=== PATIENT | male | born 1960 | race Two or more races ===

== ENCOUNTER 2022-05-05 00:32 | Inpatient (IN) | payer BC, OTHER ==
[2022-05-05] VITALS (19 sets, daily range): BP systolic 83–185; BP diastolic 53–101
[~2022-05-05] VITALS: Ht 172.7 cm; Wt 85.6 kg
[2022-05-05] MEDS ORDERED: PANTOPRAZOLE 40 MG/10 ML VIAL INJ IV ONE (01:00)
[2022-05-05 01:41] LABS: Basophils # (auto) 0 10 ^3/uL (0-0.2); Basophils % (auto) 0.8 % (0.0-2.0); Eosinophils # (auto) 0.1 10 ^3/uL (0-0.8); Lymphocytes # (auto) 0.7 10 ^3/uL (0.4-5.4); Mean Corpuscular Hemoglobin 29.4 pg (28.0-32.0); Mean Corpuscular Hgb Conc. 33.4 g/dL (32.0-36.0); Monocytes # (auto) 0.6 10 ^3/uL (0-1.3); Monocytes % (auto) 10.6 % (0.0-12.0); Neutrophils # (auto) 4.5 10 ^3/uL (1.6-8.6); Neutrophils % (auto) 75.6 % (37.0-80.0); Nucleated Red Blood Cells % 0.1 %; Red Blood Cells 3.75 10^6/uL (4.5-5.90); Red Cell Distribution Width 15.4 % (11.8-14.3)
[2022-05-05 01:57] LABS: Albumin 2.6 g/dL (3.4-5.0); Calcium 8.2 mg/dL (8.5-10.1); Potassium 4.7 mmol/L (3.5-5.1)
[2022-05-05 02:06] LABS: BUN/Creatinine Ratio 25.3; Bilirubin, Total 1.3 mg/dL (0.2-1.0); Total Protein 6.3 g/dL (6.4-8.2)
[2022-05-05] MEDS ORDERED: metroNIDAZOLE 500MG/100ML 100 ML IV ONE (07:30)
[2022-05-05] MEDS ORDERED: SODIUM CHLORIDE 0.9% 1,000 ML IV ONE (07:30)
[2022-05-05] MEDS ORDERED: cefTRIAXone 1GM/50ML D5W 50 ML IV ONE ×2 (07:30→17:45)
[2022-05-05] MEDS ORDERED: AZITHROMYCIN 500MG/ 250ML 250 ML IV ONE (07:30)
[2022-05-05] MEDS ORDERED: ONDANSETRON HCL 4 MG/2 ML VIAL IV ONE (09:30)
[2022-05-05] MEDS ORDERED: MORPHINE SULFATE INJ 2 MG/ml SYRG IV ONE (09:30)
[2022-05-05] MEDS ORDERED: ACETAMINOPHEN 325 MG TAB PO PRN (10:15)
[2022-05-05] MEDS ORDERED: LORazepam 0.5 MG TAB PO PRN (10:15)
[2022-05-05] MEDS ORDERED: PANTOPRAZOLE 40mg/50ML NS AE 50 ML IV ONE (10:15)
[2022-05-05] MEDS ORDERED: DEXTROSE (50%) 50ML SYRG IV PRN (10:15)
[2022-05-05] MEDS ORDERED: DOCUSATE SOD 100 MG CAP PO PRN (10:15)
[2022-05-05] MEDS ORDERED: HYDROcodone-ACET 5/325MG TAB PO PRN (10:15)
[2022-05-05] MEDS ORDERED: OCTREOTIDE ACETATE 500 MCG in SODIUM CHL 0.9% 99 ML IV SCH (11:15)
[2022-05-05] MEDS ORDERED: OCTREOTIDE ACETATE 100 MCG in SODIUM CHL 0.9% 50 ML IV ONE (11:15)
[2022-05-05 11:30] LABS: Basophils # (auto) 0 10 ^3/uL (0-0.2); Basophils % (auto) 0.5 % (0.0-2.0); Eosinophils # (auto) 0 10 ^3/uL (0-0.8); Eosinophils % (auto) 0.6 % (0.0-7.0); Hematocrit 27.8 % (41.0-53.0); Hemoglobin 9.5 g/dL (13.5-17.5); Lymphocytes # (auto) 1.2 10 ^3/uL (0.4-5.4); Lymphocytes % (auto) 16.5 % (10.0-50.0); Mean Corpuscular Hemoglobin 30.4 pg (28.0-32.0); Mean Corpuscular Hgb Conc. 34.2 g/dL (32.0-36.0); Mean Corpuscular Volume 88.8 fL (80.0-100.0); Monocytes % (auto) 14.5 % (0.0-12.0); Neutrophils # (auto) 4.9 10 ^3/uL (1.6-8.6); Neutrophils % (auto) 67.9 % (37.0-80.0); Nucleated Red Blood Cells % 0.1 %; Red Blood Cells 3.13 10^6/uL (4.5-5.90); Red Cell Distribution Width 15.7 % (11.8-14.3); White Blood Cell 7.2 10^3/uL (4.4-10.8)
[2022-05-05] MEDS: SODIUM CHLORIDE 0.9% 1,000 ML IV SCH (12:34)
[2022-05-05] MEDS: InsuLIN REG 1unit/0.01ml Soln (100units/ml) SC SCH ×3 (12:39→21:43)
[2022-05-05] MEDS: ACCU-CHEK COMFORT CURVE STRIP VI SCH ×3 (12:40→21:40)
[2022-05-05] MEDS ORDERED: MEPERIDINE HCL (25 MG/ML) 1ML VIAL ONE (14:24)
[2022-05-05] MEDS ORDERED: MIDAZOLAM HCL 2MG/2ML 2ml VIAL (1mg/ml) ONE ×4 (14:24→17:25)
[2022-05-05] MEDS ORDERED: fentaNYL CITRATE 100 MCG/2 ML VL ONE ×2 (14:24→16:46)
[2022-05-05] MEDS ORDERED: SUCCINYLCHOLINE CHLORIDE 20 MG/ML 10ML VIAL IV ONE (14:31)
[2022-05-05] MEDS ORDERED: DexAMETHasone SOD PHOS 10MG/1ML VIAL INJ ONE ×2 (16:03→16:57)
[2022-05-05] MEDS ORDERED: HYDROmorphone HCL 2 MG/ML VL/or syr ONE (16:45)
[2022-05-05] MEDS ORDERED: ROCURONIUM 10MG/ML 10ML VIAL IV ONE ×2 (16:46→19:17)
[2022-05-05] MEDS ORDERED: LABETALOL HCL 5 MG/ML 4ML SYRINGE IV PRN (17:45)
[2022-05-05] MEDS ORDERED: MORPHINE SULFATE 4 MG/ML SYR/VIAL IV PRN (17:45)
[2022-05-05] MEDS ORDERED: ePHEDrine SULFATE 50 MG/ML AMP IV PRN (17:45)
[2022-05-05] MEDS ORDERED: ONDANSETRON HCL 4 MG/2 ML VIAL IV PRN (17:45)
[2022-05-05] MEDS ORDERED: HYDROmorphone HCL 2 MG/ML VL/or syr IV PRN (17:45)
[2022-05-05] MEDS ORDERED: MIDAZOLAM HCL 2MG/2ML 2ml VIAL (1mg/ml) IV PRN (17:45)
[2022-05-05] MEDS: MIDAZOLAM DRIP 50 mg/50mL 50 ML IV SCH ×2 (18:00→23:32)
[2022-05-05] MEDS: PANTOPRAZOLE 40mg/50ML NS AE 50 ML IV SCH ×2 (18:08→23:33)
[2022-05-05] MEDS: OCTREOTIDE ACETATE 500 MCG in SODIUM CHL 0.9% 99 ML IV SCH (18:10)
[2022-05-05 18:12] LABS: INR 1.43 (0.9-1.15); Partial Thromboplastin Time 33.3 sec (24.6-33.4)
[2022-05-05] MEDS ORDERED: SODIUM BICARBONATE 8.4 % INJ 50ML VIAL IV ONE ×2 (18:45→19:00)
[2022-05-05 18:53] LABS: Alcohol, Urine < 3.0 mg/dL (0-10); Amphetamine Screen, Urine NEGATIVE (NEGATIVE); Barbiturate Scree,Urine NEGATIVE (NEGATIVE); Benzodiazephine Screen, Urine POSITIVE (NEGATIVE); Cannabinoid Screen, Urine NEGATIVE (NEGATIVE); Cocaine Screen, Urine NEGATIVE (NEGATIVE)
[2022-05-05 19:01] LABS: Opiate Scree,Urine NEGATIVE (NEGATIVE); Phencyclidine Screen, Urine NEGATIVE (NEGATIVE)
[2022-05-05] MEDS: fentaNYL Drip 2500mCg/250mlNS 250 ML IV SCH (21:10)
[2022-05-05] MEDS: metroNIDAZOLE 500MG/100ML 100 ML IV SCH (21:39)
[2022-05-05] MEDS: PHENYLEPHRINE IV 250 ML IV SCH (23:31)
[2022-05-05 23:51] LABS: Hematocrit 27.3 % (41.0-53.0); Hemoglobin 9.2 g/dL (13.5-17.5)
[2022-05-06] VITALS (107 sets, daily range): BP systolic 78–123; BP diastolic 40–71
[2022-05-06] MEDS: ACCU-CHEK COMFORT CURVE STRIP VI SCH ×6 (00:54→20:10)
[2022-05-06] MEDS: InsuLIN REG 1unit/0.01ml Soln (100units/ml) SC SCH ×6 (00:55→20:10)
[2022-05-06] MEDS: OCTREOTIDE ACETATE 500 MCG in SODIUM CHL 0.9% 99 ML IV SCH ×3 (03:19→21:00)
[2022-05-06] MEDS: PHENYLEPHRINE IV 250 ML IV SCH ×3 (03:20→10:27)
[2022-05-06 04:02] LABS: Hematocrit 30.3 % (41.0-53.0); Hemoglobin 9.8 g/dL (13.5-17.5); Mean Corpuscular Hgb Conc. 32.3 g/dL (32.0-36.0); Red Blood Cells 3.26 10^6/uL (4.5-5.90); Red Cell Distribution Width 16.6 % (11.8-14.3); White Blood Cell 13.5 10^3/uL (4.4-10.8)
[2022-05-06 04:10] LABS: Albumin 2.4 g/dL (3.4-5.0); Calcium 6.4 mg/dL (8.5-10.1); Potassium 4.5 mmol/L (3.5-5.1)
[2022-05-06 04:12] LABS: Basophils % (manual) 0 (0.0-2.0); Blast Cells 0; Eosinophils % (manual) 0 (0-7); Metamyelocytes % 0; Myelocytes % 0; Promyelocytes % 0; Reactive Lymphocytes 0
[2022-05-06 04:14] LABS: BUN/Creatinine Ratio 34.1; Bilirubin, Total 0.8 mg/dL (0.2-1.0); Total Protein 4.9 g/dL (6.4-8.2)
[2022-05-06 04:19] LABS: INR 1.31 (0.9-1.15); Partial Thromboplastin Time 33.8 sec (24.6-33.4)
[2022-05-06] MEDS: PANTOPRAZOLE 40mg/50ML NS AE 50 ML IV SCH ×5 (05:17→21:00)
[2022-05-06 05:21] LABS: Band Neutrophils % (manual) 6; Lymphocytes % (manual) 28 (10.0-50.0); Monocytes % (manual) 15 (0-12)
[2022-05-06] MEDS: metroNIDAZOLE 500MG/100ML 100 ML IV SCH ×3 (05:22→20:00)
[2022-05-06] MEDS: SODIUM CHLORIDE 0.9% 1,000 ML IV SCH ×2 (05:38→19:35)
[2022-05-06] MEDS: MIDAZOLAM DRIP 50 mg/50mL 50 ML IV SCH (06:26)
[2022-05-06] MEDS: cefTRIAXone 1GM/50ML D5W 50 ML IV SCH (09:00)
[2022-05-06] MEDS ORDERED: PHENYLEPHRINE IV 250 ML IV ONE (12:07)
[2022-05-06] MEDS: PHENYLEPHRINE INJ 80 MG in SODIUM CHL 0.9% 242 ML IV SCH (15:17)
[2022-05-06] MEDS: fentaNYL Drip 2500mCg/250mlNS 250 ML IV SCH (15:27)
[2022-05-06 19:04] LABS: Urine Bacteria NONE SEEN /hpf (None Seen); Urine Blood 1+ /uL (Negative); Urine Specific Gravity 1.031 (1.001-1.035); Urine WBC 3 /hpf (0 - 3)
[2022-05-07] VITALS (103 sets, daily range): BP systolic 90–119; BP diastolic 55–73
[2022-05-07 02:38] LABS: Hematocrit 28.4 % (41.0-53.0); Hemoglobin 9.4 g/dL (13.5-17.5); Mean Corpuscular Hemoglobin 29.5 pg (28.0-32.0); Mean Corpuscular Hgb Conc. 33.2 g/dL (32.0-36.0); Mean Corpuscular Volume 88.9 fL (80.0-100.0); Red Blood Cells 3.19 10^6/uL (4.5-5.90); Red Cell Distribution Width 16.1 % (11.8-14.3); White Blood Cell 13.4 10^3/uL (4.4-10.8)
[2022-05-07 02:56] LABS: Albumin 2.3 g/dL (3.4-5.0); BUN/Creatinine Ratio 31.7; Calcium 6.7 mg/dL (8.5-10.1); Potassium 4.4 mmol/L (3.5-5.1)
[2022-05-07 02:59] LABS: Bilirubin, Total 0.6 mg/dL (0.2-1.0); Total Protein 5.5 g/dL (6.4-8.2)
[2022-05-07 03:04] LABS: Basophils % (manual) 0 (0.0-2.0); Blast Cells 0; Eosinophils % (manual) 0 (0-7); Metamyelocytes % 0; Promyelocytes % 0; Reactive Lymphocytes 0
[2022-05-07] MEDS: PANTOPRAZOLE 40mg/50ML NS AE 50 ML IV SCH ×5 (03:10→23:59)
[2022-05-07] MEDS: metroNIDAZOLE 500MG/100ML 100 ML IV SCH ×3 (04:00→20:22)
[2022-05-07] MEDS: InsuLIN REG 1unit/0.01ml Soln (100units/ml) SC SCH ×6 (04:00→20:30)
[2022-05-07] MEDS: ACCU-CHEK COMFORT CURVE STRIP VI SCH ×6 (04:00→20:25)
[2022-05-07 04:27] LABS: Band Neutrophils % (manual) 7; Lymphocytes % (manual) 17 (10.0-50.0); Monocytes % (manual) 18 (0-12); Myelocytes % 1
[2022-05-07] MEDS: cefTRIAXone 1GM/50ML D5W 50 ML IV SCH (09:08)
[2022-05-07] MEDS: PHENYLEPHRINE INJ 80 MG in SODIUM CHL 0.9% 242 ML IV SCH ×2 (09:12→18:42)
[2022-05-07] MEDS: OCTREOTIDE ACETATE 500 MCG in SODIUM CHL 0.9% 99 ML IV SCH ×2 (09:13→18:48)
[2022-05-07] MEDS: SODIUM CHLORIDE 0.9% 1,000 ML IV SCH ×2 (14:35→20:24)
[2022-05-07] MEDS: MIDAZOLAM DRIP 50 mg/50mL 50 ML IV SCH (17:06)
[2022-05-07] MEDS: fentaNYL Drip 2500mCg/250mlNS 250 ML IV SCH (20:30)
[2022-05-08] VITALS (106 sets, daily range): BP systolic 102–128; BP diastolic 45–78
[2022-05-08] MEDS: InsuLIN REG 1unit/0.01ml Soln (100units/ml) SC SCH ×6 (00:02→23:39)
[2022-05-08] MEDS: ACCU-CHEK COMFORT CURVE STRIP VI SCH ×6 (04:00→23:41)
[2022-05-08 04:08] LABS: Hematocrit 28.5 % (41.0-53.0); Hemoglobin 9.6 g/dL (13.5-17.5); Mean Corpuscular Hemoglobin 30.8 pg (28.0-32.0); Mean Corpuscular Hgb Conc. 33.7 g/dL (32.0-36.0); Mean Corpuscular Volume 91.4 fL (80.0-100.0); Red Blood Cells 3.12 10^6/uL (4.5-5.90); Red Cell Distribution Width 16.1 % (11.8-14.3)
[2022-05-08 04:10] LABS: Basophils % (manual) 0 (0.0-2.0); Blast Cells 0; Eosinophils % (manual) 0 (0-7); Myelocytes % 0; Promyelocytes % 0; Reactive Lymphocytes 0
[2022-05-08 04:16] LABS: BUN/Creatinine Ratio 25.6; Calcium 7.1 mg/dL (8.5-10.1); Potassium 3.9 mmol/L (3.5-5.1)
[2022-05-08] MEDS: metroNIDAZOLE 500MG/100ML 100 ML IV SCH ×3 (04:17→20:29)
[2022-05-08] MEDS: PANTOPRAZOLE 40mg/50ML NS AE 50 ML IV SCH ×5 (05:05→23:42)
[2022-05-08 05:16] LABS: Band Neutrophils % (manual) 2; Lymphocytes % (manual) 11 (10.0-50.0); Metamyelocytes % 2; Monocytes % (manual) 14 (0-12)
[2022-05-08] MEDS: OCTREOTIDE ACETATE 500 MCG in SODIUM CHL 0.9% 99 ML IV SCH ×3 (05:21→20:30)
[2022-05-08] MEDS: MIDAZOLAM DRIP 50 mg/50mL 50 ML IV SCH ×3 (05:22→16:29)
[2022-05-08] MEDS: cefTRIAXone 1GM/50ML D5W 50 ML IV SCH (09:39)
[2022-05-08] MEDS ORDERED: D5W 5% 1,000 ML IV SCH (11:45)
[2022-05-08] MEDS: D5W 5% 1,000 ML IV SCH (12:30)
[2022-05-08 12:37] LABS: Magnesium 2.4 mg/dL (1.6-2.6); Phosphorus 1.9 mg/dL (2.5-4.90)
[2022-05-08] MEDS ORDERED: DEXTROSE (50%) 50ML SYRG IV SCH (12:45)
[2022-05-08] MEDS ORDERED: TPN PER PHARMACY IV SCH (12:45)
[2022-05-08] MEDS ORDERED: POTASSIUM PHOSPHATE 26.4 MEQ in SODIUM CHL 0.9% 100 ML IV ONE (13:45)
[2022-05-08] MEDS: fentaNYL Drip 2500mCg/250mlNS 250 ML IV SCH (16:28)
[2022-05-08] MEDS ORDERED: TPN PER PHARMACY IV NR ×8 (20:00)
[2022-05-09] VITALS (106 sets, daily range): BP systolic 93–201; BP diastolic 49–91
[2022-05-09] MEDS: metroNIDAZOLE 500MG/100ML 100 ML IV SCH ×3 (03:51→20:32)
[2022-05-09 05:02] LABS: Hematocrit 24.8 % (41.0-53.0); Mean Corpuscular Hemoglobin 30.7 pg (28.0-32.0); Mean Corpuscular Hgb Conc. 32.5 g/dL (32.0-36.0); Mean Corpuscular Volume 94.6 fL (80.0-100.0); Red Blood Cells 2.62 10^6/uL (4.5-5.90); Red Cell Distribution Width 16.4 % (11.8-14.3); White Blood Cell 6.7 10^3/uL (4.4-10.8)
[2022-05-09 05:04] LABS: Basophils # (auto) 0 10 ^3/uL (0-0.2); Basophils % (auto) 0.6 % (0.0-2.0); Eosinophils # (auto) 0.1 10 ^3/uL (0-0.8); Eosinophils % (auto) 1.1 % (0.0-7.0); Lymphocytes # (auto) 0.8 10 ^3/uL (0.4-5.4); Lymphocytes % (auto) 11.8 % (10.0-50.0); Monocytes # (auto) 1.4 10 ^3/uL (0-1.3); Neutrophils # (auto) 4.4 10 ^3/uL (1.6-8.6); Neutrophils % (auto) 65.2 % (37.0-80.0)
[2022-05-09 05:05] LABS: Basophils % (manual) 0 (0.0-2.0); Blast Cells 0; Metamyelocytes % 0; Myelocytes % 0; Promyelocytes % 0; Reactive Lymphocytes 0
[2022-05-09 05:08] LABS: INR 1.32 (0.9-1.15); Partial Thromboplastin Time 38.1 sec (24.6-33.4)
[2022-05-09] MEDS: PANTOPRAZOLE 40mg/50ML NS AE 50 ML IV SCH ×4 (05:13→21:11)
[2022-05-09 06:11] LABS: Potassium 3.6 mmol/L (3.5-5.1)
[2022-05-09 06:22] LABS: BUN/Creatinine Ratio 29.7; Bilirubin, Total 0.6 mg/dL (0.2-1.0); Magnesium 2.5 mg/dL (1.6-2.6); Phosphorus 1.3 mg/dL (2.5-4.90)
[2022-05-09] MEDS: InsuLIN REG 1unit/0.01ml Soln (100units/ml) SC SCH ×3 (06:24→17:42)
[2022-05-09] MEDS: ACCU-CHEK COMFORT CURVE STRIP VI SCH ×3 (06:24→17:42)
[2022-05-09 07:18] LABS: Band Neutrophils % (manual) 11; Eosinophils % (manual) 1 (0-7); Lymphocytes % (manual) 13 (10.0-50.0); Monocytes % (manual) 21 (0-12)
[2022-05-09] MEDS: D5W 5% 1,000 ML IV SCH (08:30)
[2022-05-09] MEDS: cefTRIAXone 1GM/50ML D5W 50 ML IV SCH (09:33)
[2022-05-09] MEDS: PHENYLEPHRINE INJ 80 MG in SODIUM CHL 0.9% 242 ML IV SCH (10:15)
[2022-05-09] MEDS: OCTREOTIDE ACETATE 500 MCG in SODIUM CHL 0.9% 99 ML IV SCH ×2 (10:37→18:35)
[2022-05-09] MEDS ORDERED: POTASSIUM PHOSPHATE 22 MEQ in SODIUM CHL 0.9% 100 ML IV ONE (11:00)
[2022-05-09] MEDS ORDERED: POTASSIUM PHOSPHATE 44 MEQ in D5W 5% 250 ML IV ONE (12:00)
[2022-05-09] MEDS ORDERED: POTASSIUM PHOSP 22MEQ(15MMOLE) in NS 100 ML IV ONE (12:00)
[2022-05-09] MEDS: MIDAZOLAM DRIP 50 mg/50mL 50 ML IV SCH (17:42)
[2022-05-09] MEDS: fentaNYL Drip 2500mCg/250mlNS 250 ML IV SCH (17:43)
[2022-05-09] MEDS ORDERED: TPN PER PHARMACY IV NR ×11 (20:00)
[2022-05-10] VITALS (101 sets, daily range): BP systolic 88–176; BP diastolic 44–98
[2022-05-10] MEDS: ACCU-CHEK COMFORT CURVE STRIP VI SCH ×5 (00:34→23:40)
[2022-05-10] MEDS: InsuLIN REG 1unit/0.01ml Soln (100units/ml) SC SCH ×5 (00:35→23:50)
[2022-05-10] MEDS: PANTOPRAZOLE 40mg/50ML NS AE 50 ML IV SCH ×4 (02:58→18:31)
[2022-05-10] MEDS: D5W 5% 1,000 ML IV SCH (03:54)
[2022-05-10] MEDS: metroNIDAZOLE 500MG/100ML 100 ML IV SCH ×2 (04:01→13:10)
[2022-05-10] MEDS: OCTREOTIDE ACETATE 500 MCG in SODIUM CHL 0.9% 99 ML IV SCH ×3 (04:01→23:49)
[2022-05-10 06:01] LABS: Hematocrit 22.2 % (41.0-53.0); Hemoglobin 7.5 g/dL (13.5-17.5); White Blood Cell 5.3 10^3/uL (4.4-10.8)
[2022-05-10 06:05] LABS: Mean Corpuscular Hemoglobin 30.7 pg (28.0-32.0); Mean Corpuscular Hgb Conc. 33.9 g/dL (32.0-36.0); Mean Corpuscular Volume 90.6 fL (80.0-100.0); Red Blood Cells 2.45 10^6/uL (4.5-5.90); Red Cell Distribution Width 15.8 % (11.8-14.3)
[2022-05-10 06:09] LABS: Basophils % (manual) 0 (0.0-2.0); Blast Cells 0; Metamyelocytes % 0; Myelocytes % 0; Promyelocytes % 0; Reactive Lymphocytes 0
[2022-05-10 06:19] LABS: Albumin 1.9 g/dL (3.4-5.0); Calcium 6.6 mg/dL (8.5-10.1); Magnesium 2.4 mg/dL (1.6-2.6); Potassium 3.8 mmol/L (3.5-5.1)
[2022-05-10 06:22] LABS: Bilirubin, Total 0.5 mg/dL (0.2-1.0); Phosphorus 1.8 mg/dL (2.5-4.90); Total Protein 4.4 g/dL (6.4-8.2)
[2022-05-10] MEDS ORDERED: POTASSIUM PHOSPHATE 44 MEQ in D5W 5% 250 ML IV ONE (07:15)
[2022-05-10] MEDS ORDERED: D5W 5% 1,000 ML IV SCH (07:15)
[2022-05-10 07:54] LABS: Band Neutrophils % (manual) 3; Eosinophils % (manual) 3 (0-7); Lymphocytes % (manual) 13 (10.0-50.0); Monocytes % (manual) 18 (0-12)
[2022-05-10] MEDS: cefTRIAXone 1GM/50ML D5W 50 ML IV SCH (08:23)
[2022-05-10] MEDS: MIDAZOLAM DRIP 50 mg/50mL 50 ML IV SCH ×3 (08:24→23:49)
[2022-05-10] MEDS ORDERED: SODIUM PHOSP 40 MEQ in D5W 5% 250 ML IV ONE (10:00)
[2022-05-10] MEDS ORDERED: PANTOPRAZOLE 40 MG/10 ML VIAL INJ IV SCH ×2 (10:00→22:00)
[2022-05-10] MEDS: PHENYLEPHRINE INJ 80 MG in SODIUM CHL 0.9% 242 ML IV SCH ×2 (10:15→18:15)
[2022-05-10] MEDS: fentaNYL Drip 2500mCg/250mlNS 250 ML IV SCH (13:09)
[2022-05-10] MEDS ORDERED: PHENYLEPHRINE IV 250 ML IV ONE (15:21)
[2022-05-10] MEDS: PROPOFOL 100 ML IV SCH (15:45)
[2022-05-10] MEDS ORDERED: TPN PER PHARMACY IV NR ×22 (20:00)
[2022-05-10] MEDS: PANTOPRAZOLE 40 MG/10 ML VIAL INJ IV SCH (22:30)
[2022-05-11] VITALS (106 sets, daily range): BP systolic 84–134; BP diastolic 49–76
[2022-05-11] MEDS: fentaNYL Drip 2500mCg/250mlNS 250 ML IV SCH ×2 (03:20→13:49)
[2022-05-11] MEDS: MIDAZOLAM DRIP 50 mg/50mL 50 ML IV SCH ×5 (03:59→20:12)
[2022-05-11 04:12] LABS: INR 1.4 (0.9-1.15); Partial Thromboplastin Time 43.9 sec (24.6-33.4)
[2022-05-11 04:15] LABS: Basophils # (auto) 0 10 ^3/uL (0-0.2); Basophils % (auto) 0.4 % (0.0-2.0); Eosinophils # (auto) 0.2 10 ^3/uL (0-0.8); Eosinophils % (auto) 3.5 % (0.0-7.0); Hematocrit 26.7 % (41.0-53.0); Lymphocytes # (auto) 1.2 10 ^3/uL (0.4-5.4); Lymphocytes % (auto) 17.5 % (10.0-50.0); Mean Corpuscular Hemoglobin 30.9 pg (28.0-32.0); Mean Corpuscular Hgb Conc. 33.6 g/dL (32.0-36.0); Mean Corpuscular Volume 92.2 fL (80.0-100.0); Monocytes # (auto) 1.2 10 ^3/uL (0-1.3); Monocytes % (auto) 17.8 % (0.0-12.0); Neutrophils # (auto) 4.1 10 ^3/uL (1.6-8.6); Neutrophils % (auto) 60.8 % (37.0-80.0); Nucleated Red Blood Cells % 0.3 %; Red Blood Cells 2.89 10^6/uL (4.5-5.90); Red Cell Distribution Width 16.3 % (11.8-14.3); White Blood Cell 6.8 10^3/uL (4.4-10.8)
[2022-05-11 04:18] LABS: Potassium 3.9 mmol/L (3.5-5.1)
[2022-05-11 04:29] LABS: Albumin 1.9 g/dL (3.4-5.0); BUN/Creatinine Ratio 31.7; Bilirubin, Total 0.6 mg/dL (0.2-1.0); Calcium 6.8 mg/dL (8.5-10.1); Magnesium 2.1 mg/dL (1.6-2.6); Phosphorus 2.6 mg/dL (2.5-4.90); Total Protein 4.9 g/dL (6.4-8.2)
[2022-05-11] MEDS: InsuLIN REG 1unit/0.01ml Soln (100units/ml) SC SCH ×3 (06:28→17:50)
[2022-05-11] MEDS: ACCU-CHEK COMFORT CURVE STRIP VI SCH ×3 (06:28→17:49)
[2022-05-11] MEDS: cefTRIAXone 1GM/50ML D5W 50 ML IV SCH (08:15)
[2022-05-11] MEDS: PANTOPRAZOLE 40 MG/10 ML VIAL INJ IV SCH ×2 (09:35→21:47)
[2022-05-11] MEDS ORDERED: BUMETANIDE 2.5mg/10ml (0.25 mg/ml) INJ IV ONE (10:00)
[2022-05-11] MEDS: ALBUTEROL SULF 2.5 MG/0.5ML(0.5%) NEB SOLN NEB PRN ×2 (11:25→18:33)
[2022-05-11] MEDS: IPRATROPIUM BROM 0.5 MG/2.5ML INH SOL NEB PRN ×2 (11:26→18:33)
[2022-05-11] MEDS: DOXYCYCLINE 100MG/250ML 250 ML IV SCH ×2 (11:31→21:48)
[2022-05-11] MEDS ORDERED: PIPERACILLIN-TAZOB 3.375GM 100 ML IV SCH (12:00)
[2022-05-11] MEDS: OCTREOTIDE ACETATE 500 MCG in SODIUM CHL 0.9% 99 ML IV SCH ×2 (12:34→21:46)
[2022-05-11] MEDS: PROPOFOL 100 ML IV SCH (15:45)
[2022-05-11] MEDS: PIPERACILLIN-TAZOB 3.375GM 100 ML IV SCH (16:15)
[2022-05-11] MEDS ORDERED: ALBUTEROL MEDNEB 2.5 mg/3ml NEB ONE ×2 (18:00→23:59)
[2022-05-11] MEDS: BUMETANIDE 2.5mg/10ml (0.25 mg/ml) INJ IV SCH (18:45)
[2022-05-11] MEDS ORDERED: TPN PER PHARMACY IV NR ×10 (20:00)
[2022-05-11 22:42] LABS: Hematocrit 30.1 % (41.0-53.0); Hemoglobin 9.9 g/dL (13.5-17.5); Mean Corpuscular Hemoglobin 30.5 pg (28.0-32.0); Mean Corpuscular Hgb Conc. 32.9 g/dL (32.0-36.0); Mean Corpuscular Volume 92.6 fL (80.0-100.0); Red Blood Cells 3.25 10^6/uL (4.5-5.90); Red Cell Distribution Width 16.5 % (11.8-14.3)
[2022-05-11 22:49] LABS: Basophils % (manual) 0 (0.0-2.0); Blast Cells 0; Metamyelocytes % 0; Myelocytes % 0; Promyelocytes % 0; Reactive Lymphocytes 0
[2022-05-11 23:15] LABS: Band Neutrophils % (manual) 1; Eosinophils % (manual) 2 (0-7); Lymphocytes % (manual) 12 (10.0-50.0); Monocytes % (manual) 17 (0-12)
[2022-05-12] VITALS (97 sets, daily range): BP systolic 83–148; BP diastolic 46–85
[2022-05-12] MEDS: PIPERACILLIN-TAZOB 3.375GM 100 ML IV SCH ×5 (00:14→22:00)
[2022-05-12] MEDS: ACCU-CHEK COMFORT CURVE STRIP VI SCH ×5 (00:14→23:55)
[2022-05-12] MEDS: InsuLIN REG 1unit/0.01ml Soln (100units/ml) SC SCH ×5 (00:15→23:57)
[2022-05-12] MEDS: MIDAZOLAM DRIP 50 mg/50mL 50 ML IV SCH (00:18)
[2022-05-12] MEDS: IPRATROPIUM BROM 0.5 MG/2.5ML INH SOL NEB PRN (00:21)
[2022-05-12] MEDS: ALBUTEROL SULF 2.5 MG/0.5ML(0.5%) NEB SOLN NEB PRN (00:21)
[2022-05-12] MEDS: fentaNYL Drip 2500mCg/250mlNS 250 ML IV SCH (03:25)
[2022-05-12 04:06] LABS: Hematocrit 28.7 % (41.0-53.0); Hemoglobin 9.6 g/dL (13.5-17.5); Mean Corpuscular Hemoglobin 30.2 pg (28.0-32.0); Mean Corpuscular Hgb Conc. 33.3 g/dL (32.0-36.0); Mean Corpuscular Volume 90.7 fL (80.0-100.0); Red Blood Cells 3.16 10^6/uL (4.5-5.90); Red Cell Distribution Width 16.2 % (11.8-14.3); White Blood Cell 10.3 10^3/uL (4.4-10.8)
[2022-05-12 04:17] LABS: Basophils % (manual) 0 (0.0-2.0); Blast Cells 0; Metamyelocytes % 0; Myelocytes % 0; Promyelocytes % 0; Reactive Lymphocytes 0
[2022-05-12 04:21] LABS: Albumin 1.8 g/dL (3.4-5.0); Calcium 6.8 mg/dL (8.5-10.1); Magnesium 2.1 mg/dL (1.6-2.6); Potassium 3.7 mmol/L (3.5-5.1)
[2022-05-12 04:24] LABS: Bilirubin, Total 0.9 mg/dL (0.2-1.0); Phosphorus 2.2 mg/dL (2.5-4.90); Total Protein 5.3 g/dL (6.4-8.2)
[2022-05-12 05:18] LABS: Band Neutrophils % (manual) 26; Lymphocytes % (manual) 13 (10.0-50.0)
[2022-05-12 05:19] LABS: Eosinophils % (manual) 3 (0-7); Monocytes % (manual) 16 (0-12)
[2022-05-12] MEDS: BUMETANIDE 2.5mg/10ml (0.25 mg/ml) INJ IV SCH ×2 (05:47→17:42)
[2022-05-12] MEDS: PANTOPRAZOLE 40 MG/10 ML VIAL INJ IV SCH ×2 (09:36→22:00)
[2022-05-12] MEDS: DOXYCYCLINE 100MG/250ML 250 ML IV SCH ×2 (09:36→22:00)
[2022-05-12] MEDS: OCTREOTIDE ACETATE 500 MCG in SODIUM CHL 0.9% 99 ML IV SCH ×2 (09:37→17:43)
[2022-05-12] MEDS: PROPOFOL 100 ML IV SCH (09:37)
[2022-05-12] MEDS ORDERED: SODIUM PHOSP 40 MEQ in D5W 5% 250 ML IV ONE (10:00)
[2022-05-12 10:02] LABS: Urine Bacteria NONE SEEN /hpf (None Seen); Urine Blood Negative /uL (Negative); Urine Specific Gravity 1.026 (1.001-1.035); Urine WBC 2 /hpf (0 - 3)
[2022-05-12] MEDS: PHENYLEPHRINE INJ 80 MG in SODIUM CHL 0.9% 242 ML IV SCH (10:15)
[2022-05-12] MEDS ORDERED: POTASSIUM PHOSPHATE 22 MEQ in SODIUM CHL 0.9% 100 ML IV ONE (12:15)
[2022-05-12] MEDS ORDERED: INSULIN LANTUS (GLARGINE) 1 /0.01ml (100units/ml) SC ONE (12:15)
[2022-05-12] MEDS ORDERED: TPN PER PHARMACY IV NR ×11 (20:00)
[2022-05-13] VITALS (98 sets, daily range): BP systolic 80–153; BP diastolic 45–91
[2022-05-13 02:41] LABS: Basophils # (auto) 0 10 ^3/uL (0-0.2); Basophils % (auto) 0.3 % (0.0-2.0); Eosinophils # (auto) 0.3 10 ^3/uL (0-0.8); Eosinophils % (auto) 3.3 % (0.0-7.0); Hematocrit 28.8 % (41.0-53.0); Hemoglobin 9.6 g/dL (13.5-17.5); Lymphocytes # (auto) 0.8 10 ^3/uL (0.4-5.4); Lymphocytes % (auto) 8.7 % (10.0-50.0); Mean Corpuscular Hemoglobin 29.8 pg (28.0-32.0); Mean Corpuscular Hgb Conc. 33.4 g/dL (32.0-36.0); Mean Corpuscular Volume 89.2 fL (80.0-100.0); Monocytes # (auto) 1.5 10 ^3/uL (0-1.3); Monocytes % (auto) 16.3 % (0.0-12.0); Neutrophils # (auto) 6.6 10 ^3/uL (1.6-8.6); Neutrophils % (auto) 71.4 % (37.0-80.0); Nucleated Red Blood Cells % 0.3 %; Red Blood Cells 3.23 10^6/uL (4.5-5.90); Red Cell Distribution Width 16.6 % (11.8-14.3); White Blood Cell 9.3 10^3/uL (4.4-10.8)
[2022-05-13 03:02] LABS: Albumin 1.6 g/dL (3.4-5.0); Magnesium 1.9 mg/dL (1.6-2.6); Potassium 3.3 mmol/L (3.5-5.1)
[2022-05-13 03:04] LABS: BUN/Creatinine Ratio 26.4
[2022-05-13 03:06] LABS: Bilirubin, Total 0.9 mg/dL (0.2-1.0); Phosphorus 2.2 mg/dL (2.5-4.90); Total Protein 5.4 g/dL (6.4-8.2)
[2022-05-13] MEDS: PIPERACILLIN-TAZOB 3.375GM 100 ML IV SCH ×3 (04:15→16:28)
[2022-05-13] MEDS: OCTREOTIDE ACETATE 500 MCG in SODIUM CHL 0.9% 99 ML IV SCH ×3 (04:15→19:30)
[2022-05-13] MEDS: BUMETANIDE 2.5mg/10ml (0.25 mg/ml) INJ IV SCH ×2 (06:00→18:35)
[2022-05-13] MEDS: ACCU-CHEK COMFORT CURVE STRIP VI SCH ×3 (06:00→18:00)
[2022-05-13] MEDS: InsuLIN REG 1unit/0.01ml Soln (100units/ml) SC SCH ×3 (06:00→18:00)
[2022-05-13] MEDS ORDERED: INSULIN LANTUS (GLARGINE) 1 /0.01ml (100units/ml) SC SCH (07:00)
[2022-05-13] MEDS ORDERED: POTASSIUM PHOSPHATE 44 MEQ in D5W 5% 250 ML IV ONE (08:00)
[2022-05-13] MEDS ORDERED: POTASSIUM CHLORIDE 40 MEQ, LIDOCAINE 1% (LOCAL ANESTH.) 4 ML in SODIUM CHL 0.9% 250 ML IV ONE (08:00)
[2022-05-13] MEDS: DOXYCYCLINE 100MG/250ML 250 ML IV SCH ×2 (09:11→22:00)
[2022-05-13] MEDS: PANTOPRAZOLE 40 MG/10 ML VIAL INJ IV SCH ×2 (09:11→22:00)
[2022-05-13] MEDS: PHENYLEPHRINE INJ 80 MG in SODIUM CHL 0.9% 242 ML IV SCH (13:34)
[2022-05-13] MEDS: PROPOFOL 100 ML IV SCH (15:45)
[2022-05-13] MEDS: fentaNYL Drip 2500mCg/250mlNS 250 ML IV SCH (18:00)
[2022-05-13] MEDS: MIDAZOLAM DRIP 50 mg/50mL 50 ML IV SCH (18:00)
[2022-05-13] MEDS ORDERED: TPN PER PHARMACY IV NR ×11 (20:00)
[2022-05-14] VITALS (82 sets, daily range): BP systolic 95–142; BP diastolic 57–79
[2022-05-14] MEDS: DOXYCYCLINE 100MG/250ML 250 ML IV SCH ×2 (00:30→09:44)
[2022-05-14] MEDS: InsuLIN REG 1unit/0.01ml Soln (100units/ml) SC SCH ×4 (00:50→18:06)
[2022-05-14] MEDS: PIPERACILLIN-TAZOB 3.375GM 100 ML IV SCH ×4 (01:03→19:59)
[2022-05-14] MEDS: OCTREOTIDE ACETATE 500 MCG in SODIUM CHL 0.9% 99 ML IV SCH (03:01)
[2022-05-14] MEDS: ACCU-CHEK COMFORT CURVE STRIP VI SCH ×4 (06:00→18:05)
[2022-05-14] MEDS: BUMETANIDE 2.5mg/10ml (0.25 mg/ml) INJ IV SCH ×2 (06:49→18:14)
[2022-05-14] MEDS: INSULIN LANTUS (GLARGINE) 1 /0.01ml (100units/ml) SC SCH (06:52)
[2022-05-14 06:56] LABS: Albumin 1.7 g/dL (3.4-5.0); Calcium 6.7 mg/dL (8.5-10.1); Magnesium 2.1 mg/dL (1.6-2.6); Potassium 3.3 mmol/L (3.5-5.1)
[2022-05-14 07:00] LABS: BUN/Creatinine Ratio 32.2; Bilirubin, Total 0.8 mg/dL (0.2-1.0); Phosphorus 2.1 mg/dL (2.5-4.90); Total Protein 5.1 g/dL (6.4-8.2)
[2022-05-14] MEDS: PANTOPRAZOLE 40 MG/10 ML VIAL INJ IV SCH ×2 (09:43→22:00)
[2022-05-14] MEDS: PHENYLEPHRINE INJ 80 MG in SODIUM CHL 0.9% 242 ML IV SCH ×2 (10:15→20:00)
[2022-05-14] MEDS ORDERED: POTASSIUM PHOSPHATE 44 MEQ in D5W 5% 250 ML IV ONE (10:30)
[2022-05-14] MEDS ORDERED: POTASSIUM PHOSPHATE 44 MEQ in SODIUM CHL 0.9% 250 ML IV ONE (12:00)
[2022-05-14] MEDS ORDERED: LORazepam 2MG/ML-1ML VIAL IV PRN (14:45)
[2022-05-14] MEDS: LORazepam 2MG/ML-1ML VIAL IV PRN ×2 (15:40→21:22)
[2022-05-14] MEDS: PROPOFOL 100 ML IV SCH (15:45)
[2022-05-14] MEDS: fentaNYL Drip 2500mCg/250mlNS 250 ML IV SCH (18:00)
[2022-05-14] MEDS: MIDAZOLAM DRIP 50 mg/50mL 50 ML IV SCH (18:00)
[2022-05-14] MEDS ORDERED: TPN PER PHARMACY IV NR ×12 (20:00)
[2022-05-14] MEDS ORDERED: BISACODYL 10 MG RECT SUPP PR ONE (23:15)
[2022-05-15] VITALS (68 sets, daily range): BP systolic 100–141; BP diastolic 63–84
[2022-05-15] MEDS: ACCU-CHEK COMFORT CURVE STRIP VI SCH ×4 (00:11→18:00)
[2022-05-15] MEDS: InsuLIN REG 1unit/0.01ml Soln (100units/ml) SC SCH ×4 (00:12→18:00)
[2022-05-15] MEDS: PIPERACILLIN-TAZOB 3.375GM 100 ML IV SCH ×4 (02:30→23:59)
[2022-05-15] MEDS: LORazepam 2MG/ML-1ML VIAL IV PRN ×4 (02:47→22:24)
[2022-05-15 04:16] LABS: Potassium 3.2 mmol/L (3.5-5.1)
[2022-05-15 04:24] LABS: Albumin 1.7 g/dL (3.4-5.0); BUN/Creatinine Ratio 27.6; Bilirubin, Total 1.1 mg/dL (0.2-1.0); Calcium 6.8 mg/dL (8.5-10.1); Magnesium 2.2 mg/dL (1.6-2.6); Phosphorus 2.3 mg/dL (2.5-4.90); Total Protein 5.7 g/dL (6.4-8.2)
[2022-05-15] MEDS: BUMETANIDE 2.5mg/10ml (0.25 mg/ml) INJ IV SCH ×2 (06:00→18:00)
[2022-05-15] MEDS: ALBUTEROL MEDNEB 2.5 mg/3ml NEB NEB PRN (06:07)
[2022-05-15] MEDS: IPRATROPIUM BROM 0.5 MG/2.5ML INH SOL NEB PRN (06:07)
[2022-05-15] MEDS: INSULIN LANTUS (GLARGINE) 1 /0.01ml (100units/ml) SC SCH (07:24)
[2022-05-15 08:18] LABS: Hematocrit 28.9 % (41.0-53.0); Hemoglobin 9.8 g/dL (13.5-17.5)
[2022-05-15] MEDS ORDERED: CALCIUM GLUC 1,000mg/50ml-NS 50 ML IV ONE (09:45)
[2022-05-15] MEDS: PANTOPRAZOLE 40 MG/10 ML VIAL INJ IV SCH ×2 (09:55→21:30)
[2022-05-15] MEDS: DOXYCYCLINE 100MG/250ML 250 ML IV SCH ×2 (09:55→21:30)
[2022-05-15] MEDS ORDERED: POTASSIUM PHOSPHATE 44 MEQ in D5W 5% 250 ML IV ONE (10:00)
[2022-05-15] MEDS: PROPOFOL 100 ML IV SCH (15:45)
[2022-05-15] MEDS: MIDAZOLAM DRIP 50 mg/50mL 50 ML IV SCH (18:00)
[2022-05-15] MEDS: fentaNYL Drip 2500mCg/250mlNS 250 ML IV SCH (18:00)
[2022-05-15] MEDS ORDERED: TPN PER PHARMACY IV NR ×10 (20:00)
[2022-05-16] VITALS (123 sets, daily range): BP systolic 65–145; BP diastolic 43–86
[2022-05-16] MEDS: InsuLIN REG 1unit/0.01ml Soln (100units/ml) SC SCH ×4 (00:16→17:57)
[2022-05-16] MEDS ORDERED: LORazepam 2MG/ML-1ML VIAL IV ONE (01:30)
[2022-05-16] MEDS ORDERED: ETOMIDATE (2MG/ML) 20ML VIAL IV ONE (02:13)
[2022-05-16] MEDS ORDERED: SUCCINYLCHOLINE CHLORIDE 20 MG/ML 10ML VIAL IV ONE (02:14)
[2022-05-16] MEDS: fentaNYL Drip 2500mCg/250mlNS 250 ML IV SCH ×2 (02:25→15:44)
[2022-05-16] MEDS: MIDAZOLAM DRIP 50 mg/50mL 50 ML IV SCH ×5 (02:25→23:00)
[2022-05-16] MEDS ORDERED: PHENYLEPHRINE HCL 10 MG/ML VL ONE (02:28)
[2022-05-16] MEDS ORDERED: fentaNYL Drip 2500mCg/250mlNS 250 ML IV ONE (03:15)
[2022-05-16] MEDS: PROPOFOL 100 ML IV SCH ×2 (03:21→21:00)
[2022-05-16 04:14] LABS: Albumin 1.9 g/dL (3.4-5.0); BUN/Creatinine Ratio 24.6; Calcium 7.1 mg/dL (8.5-10.1); Magnesium 2.1 mg/dL (1.6-2.6); Potassium 3.4 mmol/L (3.5-5.1)
[2022-05-16 04:17] LABS: Bilirubin, Total 1.6 mg/dL (0.2-1.0); Phosphorus 2.9 mg/dL (2.5-4.90)
[2022-05-16] MEDS: PHENYLEPHRINE INJ 80 MG in SODIUM CHL 0.9% 242 ML IV SCH ×2 (05:35→15:55)
[2022-05-16] MEDS: ACCU-CHEK COMFORT CURVE STRIP VI SCH ×4 (05:52→17:55)
[2022-05-16] MEDS: BUMETANIDE 2.5mg/10ml (0.25 mg/ml) INJ IV SCH ×2 (06:04→17:46)
[2022-05-16] MEDS: INSULIN LANTUS (GLARGINE) 1 /0.01ml (100units/ml) SC SCH (06:30)
[2022-05-16] MEDS: PIPERACILLIN-TAZOB 3.375GM 100 ML IV SCH ×3 (06:31→18:00)
[2022-05-16] MEDS ORDERED: POTASSIUM CHL 20MEQ/100ML 100 ML IV ONE ×2 (09:15)
[2022-05-16 09:48] LABS: Hemoglobin 7.8 g/dL (13.5-17.5); Mean Corpuscular Hemoglobin 30.5 pg (28.0-32.0); Red Blood Cells 2.57 10^6/uL (4.5-5.90)
[2022-05-16 09:50] LABS: Hematocrit 22.2 % (41.0-53.0); Mean Corpuscular Hgb Conc. 35.3 g/dL (32.0-36.0); Mean Corpuscular Volume 86.5 fL (80.0-100.0); Red Cell Distribution Width 16.4 % (11.8-14.3); White Blood Cell 15.9 10^3/uL (4.4-10.8)
[2022-05-16 09:53] LABS: Basophils % (manual) 0 (0.0-2.0); Blast Cells 0; Metamyelocytes % 0; Myelocytes % 0; Promyelocytes % 0; Reactive Lymphocytes 0
[2022-05-16 10:09] LABS: INR 1.29 (0.9-1.15); Partial Thromboplastin Time 39.8 sec (24.6-33.4)
[2022-05-16] MEDS: PANTOPRAZOLE 40mg/50ML NS AE 50 ML IV SCH ×4 (10:24→23:00)
[2022-05-16] MEDS: OCTREOTIDE ACETATE 500 MCG in SODIUM CHL 0.9% 99 ML IV SCH ×2 (10:51→17:49)
[2022-05-16 15:01] LABS: Band Neutrophils % (manual) 6; Eosinophils % (manual) 3 (0-7); Lymphocytes % (manual) 10 (10.0-50.0); Monocytes % (manual) 13 (0-12)
[2022-05-16] MEDS: DOXYCYCLINE 100MG/250ML 250 ML IV SCH (16:38)
[2022-05-16] MEDS ORDERED: TPN PER PHARMACY IV NR ×12 (20:00)
[2022-05-16] MEDS ORDERED: PANTOPRAZOLE 40 MG/10 ML VIAL INJ IV ONE (22:43)
[2022-05-17] VITALS (108 sets, daily range): BP systolic 77–118; BP diastolic 35–70
[2022-05-17] MEDS: PHENYLEPHRINE INJ 80 MG in SODIUM CHL 0.9% 242 ML IV SCH ×3 (00:30→21:31)
[2022-05-17] MEDS: InsuLIN REG 1unit/0.01ml Soln (100units/ml) SC SCH ×4 (01:09→18:11)
[2022-05-17] MEDS: DOXYCYCLINE 100MG/250ML 250 ML IV SCH ×2 (04:00→16:34)
[2022-05-17] MEDS: PANTOPRAZOLE 40mg/50ML NS AE 50 ML IV SCH ×5 (04:00→23:45)
[2022-05-17] MEDS: MIDAZOLAM DRIP 50 mg/50mL 50 ML IV SCH ×3 (04:30→18:31)
[2022-05-17] MEDS: fentaNYL Drip 2500mCg/250mlNS 250 ML IV SCH ×2 (05:00→21:07)
[2022-05-17 05:01] LABS: Albumin 1.6 g/dL (3.4-5.0); Calcium 6.5 mg/dL (8.5-10.1); Magnesium 2.4 mg/dL (1.6-2.6); Potassium 3.8 mmol/L (3.5-5.1)
[2022-05-17 05:05] LABS: Phosphorus 2.9 mg/dL (2.5-4.90)
[2022-05-17] MEDS: OCTREOTIDE ACETATE 500 MCG in SODIUM CHL 0.9% 99 ML IV SCH ×3 (05:42→22:40)
[2022-05-17] MEDS: ACCU-CHEK COMFORT CURVE STRIP VI SCH ×4 (05:42→18:04)
[2022-05-17] MEDS: BUMETANIDE 2.5mg/10ml (0.25 mg/ml) INJ IV SCH ×2 (05:45→18:31)
[2022-05-17] MEDS: PIPERACILLIN-TAZOB 3.375GM 100 ML IV SCH ×4 (05:46→19:32)
[2022-05-17] MEDS: INSULIN LANTUS (GLARGINE) 1 /0.01ml (100units/ml) SC SCH (07:00)
[2022-05-17] MEDS ORDERED: PHENYLEPHRINE IV 250 ML IV ONE (08:36)
[2022-05-17] MEDS ORDERED: PHENYLEPHRINE HCL 10 MG/ML VL ONE (08:36)
[2022-05-17] MEDS ORDERED: CALCIUM GLUC 1,000mg/50ml-NS 50 ML IV ONE (08:45)
[2022-05-17] MEDS: NOREPINEPHRINE BITARTRATE 32 MG in SODIUM CHL 0.9% 218 ML IV SCH (09:24)
[2022-05-17 09:48] LABS: Hepatitis B Surface Antibody Negative (Negative)
[2022-05-17 10:25] LABS: Hepatitis A Total Antibody Positive (Negative)
[2022-05-17] MEDS: PROPOFOL 100 ML IV SCH ×2 (12:36→20:29)
[2022-05-17 14:25] LABS: Hepatitis C Antibody Negative (Negative)
[2022-05-17 14:28] LABS: Hematocrit 29.3 % (41.0-53.0); Hemoglobin 9.4 g/dL (13.5-17.5); Mean Corpuscular Hgb Conc. 32.2 g/dL (32.0-36.0); Mean Corpuscular Volume 93.2 fL (80.0-100.0); Red Blood Cells 3.14 10^6/uL (4.5-5.90); Red Cell Distribution Width 17.6 % (11.8-14.3); White Blood Cell 14.7 10^3/uL (4.4-10.8)
[2022-05-17 14:30] LABS: Basophils % (manual) 0 (0.0-2.0); Blast Cells 0; Metamyelocytes % 0; Myelocytes % 0; Promyelocytes % 0
[2022-05-17] MEDS ORDERED: LIDOCAINE 1% (LOCAL ANESTH.) PF 5ml SDV ID ONE (16:15)
[2022-05-17] MEDS: ALBUTEROL MEDNEB 2.5 mg/3ml NEB NEB PRN (17:57)
[2022-05-17] MEDS: IPRATROPIUM BROM 0.5 MG/2.5ML INH SOL NEB PRN (17:57)
[2022-05-17 19:22] LABS: Band Neutrophils % (manual) 7; Eosinophils % (manual) 4 (0-7); Lymphocytes % (manual) 11 (10.0-50.0); Monocytes % (manual) 15 (0-12); Reactive Lymphocytes 1
[2022-05-17] MEDS ORDERED: TPN PER PHARMACY IV NR ×12 (20:00)
[2022-05-17] MEDS: SODIUM CHLOR 0.9% PF (SALINE LOCK) 10ML VIAL/SYR IV SCH (22:36)
[2022-05-18] VITALS (105 sets, daily range): BP systolic 89–124; BP diastolic 52–74
[2022-05-18] MEDS: IPRATROPIUM BROM 0.5 MG/2.5ML INH SOL NEB PRN (00:23)
[2022-05-18] MEDS: ALBUTEROL MEDNEB 2.5 mg/3ml NEB NEB PRN (00:23)
[2022-05-18] MEDS: ACCU-CHEK COMFORT CURVE STRIP VI SCH ×5 (00:44→23:48)
[2022-05-18] MEDS: PIPERACILLIN-TAZOB 3.375GM 100 ML IV SCH ×4 (00:44→17:37)
[2022-05-18] MEDS: InsuLIN REG 1unit/0.01ml Soln (100units/ml) SC SCH ×5 (00:46→23:50)
[2022-05-18] MEDS ORDERED: PHENYLEPHRINE HCL 10 MG/ML VL ONE ×2 (04:18→04:52)
[2022-05-18 04:20] LABS: Hematocrit 25.3 % (41.0-53.0); Hemoglobin 8.4 g/dL (13.5-17.5); Mean Corpuscular Hemoglobin 30.2 pg (28.0-32.0); Mean Corpuscular Hgb Conc. 33.2 g/dL (32.0-36.0); Mean Corpuscular Volume 90.9 fL (80.0-100.0); Red Blood Cells 2.79 10^6/uL (4.5-5.90); Red Cell Distribution Width 16.8 % (11.8-14.3); White Blood Cell 12.5 10^3/uL (4.4-10.8)
[2022-05-18 04:22] LABS: Basophils % (manual) 0 (0.0-2.0); Blast Cells 0; Metamyelocytes % 0; Myelocytes % 0; Promyelocytes % 0; Reactive Lymphocytes 0
[2022-05-18 04:33] LABS: Albumin 1.7 g/dL (3.4-5.0); Calcium 6.8 mg/dL (8.5-10.1); Magnesium 2.3 mg/dL (1.6-2.6); Potassium 4.3 mmol/L (3.5-5.1)
[2022-05-18 04:38] LABS: BUN/Creatinine Ratio 31.5; Bilirubin, Total 1.3 mg/dL (0.2-1.0); Phosphorus 3.2 mg/dL (2.5-4.90); Total Protein 5.5 g/dL (6.4-8.2)
[2022-05-18] MEDS: DOXYCYCLINE 100MG/250ML 250 ML IV SCH ×2 (05:05→16:09)
[2022-05-18] MEDS: PHENYLEPHRINE INJ 80 MG in SODIUM CHL 0.9% 242 ML IV SCH ×3 (05:06→19:30)
[2022-05-18] MEDS: BUMETANIDE 2.5mg/10ml (0.25 mg/ml) INJ IV SCH ×2 (06:22→17:37)
[2022-05-18] MEDS: PANTOPRAZOLE 40mg/50ML NS AE 50 ML IV SCH ×2 (06:49→11:23)
[2022-05-18] MEDS: NOREPINEPHRINE BITARTRATE 32 MG in SODIUM CHL 0.9% 218 ML IV SCH (07:45)
[2022-05-18] MEDS: INSULIN LANTUS (GLARGINE) 1 /0.01ml (100units/ml) SC SCH (07:47)
[2022-05-18 08:23] LABS: Band Neutrophils % (manual) 4; Eosinophils % (manual) 6 (0-7); Lymphocytes % (manual) 11 (10.0-50.0); Monocytes % (manual) 20 (0-12)
[2022-05-18] MEDS: PROPOFOL 100 ML IV SCH ×2 (09:00→22:34)
[2022-05-18] MEDS: MIDAZOLAM DRIP 50 mg/50mL 50 ML IV SCH ×2 (09:01→15:03)
[2022-05-18] MEDS: OCTREOTIDE ACETATE 500 MCG in SODIUM CHL 0.9% 99 ML IV SCH ×2 (11:20→20:37)
[2022-05-18] MEDS: SODIUM CHLOR 0.9% PF (SALINE LOCK) 10ML VIAL/SYR IV SCH ×2 (11:21→22:13)
[2022-05-18] MEDS: fentaNYL Drip 2500mCg/250mlNS 250 ML IV SCH (15:03)
[2022-05-18] MEDS ORDERED: TPN PER PHARMACY IV NR ×9 (20:00)
[2022-05-18] MEDS: PANTOPRAZOLE 40 MG/10 ML VIAL INJ IV SCH (22:14)
[2022-05-19] VITALS (107 sets, daily range): BP systolic 88–132; BP diastolic 45–76
[2022-05-19] MEDS: PIPERACILLIN-TAZOB 3.375GM 100 ML IV SCH ×4 (00:46→20:07)
[2022-05-19] MEDS: PHENYLEPHRINE INJ 80 MG in SODIUM CHL 0.9% 242 ML IV SCH ×3 (03:30→19:00)
[2022-05-19] MEDS: DOXYCYCLINE 100MG/250ML 250 ML IV SCH ×2 (05:00→16:32)
[2022-05-19] MEDS: MIDAZOLAM DRIP 50 mg/50mL 50 ML IV SCH ×2 (05:03→23:55)
[2022-05-19] MEDS: ACCU-CHEK COMFORT CURVE STRIP VI SCH ×3 (05:53→18:00)
[2022-05-19] MEDS: InsuLIN REG 1unit/0.01ml Soln (100units/ml) SC SCH ×3 (05:56→18:05)
[2022-05-19] MEDS: INSULIN LANTUS (GLARGINE) 1 /0.01ml (100units/ml) SC SCH (05:57)
[2022-05-19] MEDS: BUMETANIDE 2.5mg/10ml (0.25 mg/ml) INJ IV SCH ×2 (05:58→18:03)
[2022-05-19 06:28] LABS: Hematocrit 23.7 % (41.0-53.0); Hemoglobin 7.9 g/dL (13.5-17.5); Mean Corpuscular Hemoglobin 30.6 pg (28.0-32.0); Mean Corpuscular Hgb Conc. 33.5 g/dL (32.0-36.0); Mean Corpuscular Volume 91.4 fL (80.0-100.0); Red Blood Cells 2.59 10^6/uL (4.5-5.90); Red Cell Distribution Width 17.2 % (11.8-14.3)
[2022-05-19 06:30] LABS: Basophils % (manual) 0 (0.0-2.0); Blast Cells 0; Metamyelocytes % 0; Myelocytes % 0; Promyelocytes % 0; Reactive Lymphocytes 0
[2022-05-19 06:38] LABS: Albumin 1.6 g/dL (3.4-5.0); Calcium 6.8 mg/dL (8.5-10.1); Magnesium 2.2 mg/dL (1.6-2.6)
[2022-05-19 06:44] LABS: BUN/Creatinine Ratio 39.4; Bilirubin, Total 1.3 mg/dL (0.2-1.0); Total Protein 5.2 g/dL (6.4-8.2)
[2022-05-19 07:18] LABS: Potassium 4.5 mmol/L (3.5-5.1)
[2022-05-19] MEDS: NOREPINEPHRINE BITARTRATE 32 MG in SODIUM CHL 0.9% 218 ML IV SCH (07:45)
[2022-05-19] MEDS ORDERED: SODIUM PHOSP 40 MEQ in D5W 5% 250 ML IV ONE (08:30)
[2022-05-19] MEDS ORDERED: SODIUM PHOSPHATES 20 MEQ in SODIUM CHL 0.9% 100 ML IV ONE (09:45)
[2022-05-19] MEDS ORDERED: LACTULOSE 10g/15ml SOLN 473ML PR ONE (09:45)
[2022-05-19] MEDS: PANTOPRAZOLE 40 MG/10 ML VIAL INJ IV SCH ×2 (10:02→22:17)
[2022-05-19] MEDS: SODIUM CHLOR 0.9% PF (SALINE LOCK) 10ML VIAL/SYR IV SCH ×2 (10:06→22:18)
[2022-05-19] MEDS: FLUCONAZOLE 200MG/100ML 100 ML IV SCH (10:46)
[2022-05-19] MEDS: OCTREOTIDE ACETATE 500 MCG in SODIUM CHL 0.9% 99 ML IV SCH ×2 (10:49→17:15)
[2022-05-19 11:39] LABS: INR 1.25 (0.9-1.15); Partial Thromboplastin Time 39.3 sec (24.6-33.4)
[2022-05-19] MEDS: PROPOFOL 100 ML IV SCH (12:32)
[2022-05-19] MEDS: fentaNYL Drip 2500mCg/250mlNS 250 ML IV SCH (12:34)
[2022-05-19] MEDS: ALBUTEROL MEDNEB 2.5 mg/3ml NEB NEB PRN ×2 (12:58→18:16)
[2022-05-19] MEDS: IPRATROPIUM BROM 0.5 MG/2.5ML INH SOL NEB PRN ×2 (12:58→18:17)
[2022-05-19] MEDS: ACETYLCYSTEINE 10 %(100MG/ML) SOL 4ML NEB SCH ×2 (12:58→18:17)
[2022-05-19 13:30] LABS: Band Neutrophils % (manual) 12; Eosinophils % (manual) 3 (0-7); Lymphocytes % (manual) 16 (10.0-50.0); Monocytes % (manual) 15 (0-12)
[2022-05-19] MEDS ORDERED: TPN PER PHARMACY IV NR ×9 (20:00)
[2022-05-20] VITALS (106 sets, daily range): BP systolic 71–162; BP diastolic 39–90
[2022-05-20] MEDS: InsuLIN REG 1unit/0.01ml Soln (100units/ml) SC SCH ×4 (00:15→16:53)
[2022-05-20] MEDS: ACCU-CHEK COMFORT CURVE STRIP VI SCH ×4 (00:16→16:53)
[2022-05-20] MEDS: ACETYLCYSTEINE 10 %(100MG/ML) SOL 4ML NEB SCH ×4 (00:32→18:31)
[2022-05-20] MEDS: ALBUTEROL MEDNEB 2.5 mg/3ml NEB NEB PRN ×3 (00:32→18:31)
[2022-05-20] MEDS: IPRATROPIUM BROM 0.5 MG/2.5ML INH SOL NEB PRN ×3 (00:33→18:31)
[2022-05-20] MEDS ORDERED: PROPOFOL 100 ML IV ONE (00:43)
[2022-05-20] MEDS: PIPERACILLIN-TAZOB 3.375GM 100 ML IV SCH ×4 (02:00→16:58)
[2022-05-20] MEDS: DOXYCYCLINE 100MG/250ML 250 ML IV SCH ×2 (04:00→15:03)
[2022-05-20 04:18] LABS: Potassium 4.1 mmol/L (3.5-5.1)
[2022-05-20 04:22] LABS: Albumin 1.5 g/dL (3.4-5.0); BUN/Creatinine Ratio 41.5; Calcium 6.7 mg/dL (8.5-10.1)
[2022-05-20 04:25] LABS: Bilirubin, Total 1.3 mg/dL (0.2-1.0); Phosphorus 2.8 mg/dL (2.5-4.90); Total Protein 5.2 g/dL (6.4-8.2)
[2022-05-20] MEDS: BUMETANIDE 2.5mg/10ml (0.25 mg/ml) INJ IV SCH ×2 (06:34→16:57)
[2022-05-20] MEDS: INSULIN LANTUS (GLARGINE) 1 /0.01ml (100units/ml) SC SCH (06:36)
[2022-05-20] MEDS: fentaNYL Drip 2500mCg/250mlNS 250 ML IV SCH (07:37)
[2022-05-20] MEDS: NOREPINEPHRINE BITARTRATE 32 MG in SODIUM CHL 0.9% 218 ML IV SCH (07:45)
[2022-05-20] MEDS: PANTOPRAZOLE 40 MG/10 ML VIAL INJ IV SCH ×2 (08:21→21:58)
[2022-05-20] MEDS: SODIUM CHLOR 0.9% PF (SALINE LOCK) 10ML VIAL/SYR IV SCH ×2 (08:22→21:58)
[2022-05-20] MEDS: FLUCONAZOLE 200MG/100ML 100 ML IV SCH (09:43)
[2022-05-20] MEDS: PROPOFOL 100 ML IV SCH ×2 (11:32→23:46)
[2022-05-20] MEDS ORDERED: TPN PER PHARMACY IV NR ×10 (20:00)
[2022-05-20] MEDS: MIDAZOLAM DRIP 50 mg/50mL 50 ML IV SCH (23:47)
[2022-05-21] VITALS (92 sets, daily range): BP systolic 74–184; BP diastolic 39–96
[2022-05-21] MEDS: ACETYLCYSTEINE 10 %(100MG/ML) SOL 4ML NEB SCH ×4 (00:14→18:53)
[2022-05-21] MEDS: ALBUTEROL MEDNEB 2.5 mg/3ml NEB NEB PRN ×4 (00:14→18:53)
[2022-05-21] MEDS: IPRATROPIUM BROM 0.5 MG/2.5ML INH SOL NEB PRN ×4 (00:15→18:53)
[2022-05-21 00:38] LABS: Basophils # (auto) 0.1 10 ^3/uL (0-0.2); Eosinophils # (auto) 0.3 10 ^3/uL (0-0.8); Eosinophils % (auto) 3.3 % (0.0-7.0); Hematocrit 25.8 % (41.0-53.0); Hemoglobin 8.7 g/dL (13.5-17.5); Lymphocytes # (auto) 0.9 10 ^3/uL (0.4-5.4); Lymphocytes % (auto) 9.9 % (10.0-50.0); Mean Corpuscular Hemoglobin 29.8 pg (28.0-32.0); Mean Corpuscular Hgb Conc. 33.7 g/dL (32.0-36.0); Mean Corpuscular Volume 88.4 fL (80.0-100.0); Monocytes % (auto) 10.7 % (0.0-12.0); Neutrophils % (auto) 75.1 % (37.0-80.0); Nucleated Red Blood Cells % 0.2 %; Red Blood Cells 2.91 10^6/uL (4.5-5.90); Red Cell Distribution Width 16.9 % (11.8-14.3); White Blood Cell 9.3 10^3/uL (4.4-10.8)
[2022-05-21] MEDS: DOXYCYCLINE 100MG/250ML 250 ML IV SCH ×2 (04:00→23:07)
[2022-05-21 05:09] LABS: Eosinophils # (auto) 0.1 10 ^3/uL (0-0.8); Neutrophils # (auto) 8.3 10 ^3/uL (1.6-8.6); Nucleated Red Blood Cells % 0.1 %; Red Cell Distribution Width 16.9 % (11.8-14.3); White Blood Cell 10.3 10^3/uL (4.4-10.8)
[2022-05-21 05:11] LABS: Basophils # (auto) 0 10 ^3/uL (0-0.2); Basophils % (auto) 0.4 % (0.0-2.0); Eosinophils % (auto) 1.1 % (0.0-7.0); Hemoglobin 7.6 g/dL (13.5-17.5); Lymphocytes # (auto) 0.6 10 ^3/uL (0.4-5.4); Lymphocytes % (auto) 5.6 % (10.0-50.0); Mean Corpuscular Hemoglobin 31.1 pg (28.0-32.0); Mean Corpuscular Hgb Conc. 34.5 g/dL (32.0-36.0); Mean Corpuscular Volume 90.3 fL (80.0-100.0); Monocytes # (auto) 1.3 10 ^3/uL (0-1.3); Monocytes % (auto) 12.2 % (0.0-12.0); Neutrophils % (auto) 80.7 % (37.0-80.0); Red Blood Cells 2.44 10^6/uL (4.5-5.90)
[2022-05-21 05:36] LABS: Albumin 1.5 g/dL (3.4-5.0); BUN/Creatinine Ratio 40.3; Bilirubin, Total 1.7 mg/dL (0.2-1.0); Calcium 6.8 mg/dL (8.5-10.1); Magnesium 2.2 mg/dL (1.6-2.6); Phosphorus 2.7 mg/dL (2.5-4.90); Potassium 3.6 mmol/L (3.5-5.1); Total Protein 5.4 g/dL (6.4-8.2)
[2022-05-21] MEDS: BUMETANIDE 2.5mg/10ml (0.25 mg/ml) INJ IV SCH ×2 (06:00→17:02)
[2022-05-21] MEDS: ACCU-CHEK COMFORT CURVE STRIP VI SCH ×4 (06:00→17:03)
[2022-05-21] MEDS: InsuLIN REG 1unit/0.01ml Soln (100units/ml) SC SCH ×4 (06:35→17:03)
[2022-05-21] MEDS: INSULIN LANTUS (GLARGINE) 1 /0.01ml (100units/ml) SC SCH (06:36)
[2022-05-21] MEDS: PIPERACILLIN-TAZOB 3.375GM 100 ML IV SCH ×4 (06:39→17:02)
[2022-05-21] MEDS: NOREPINEPHRINE BITARTRATE 32 MG in SODIUM CHL 0.9% 218 ML IV SCH (07:31)
[2022-05-21] MEDS: SODIUM CHLOR 0.9% PF (SALINE LOCK) 10ML VIAL/SYR IV SCH ×2 (07:33→22:15)
[2022-05-21] MEDS: PANTOPRAZOLE 40 MG/10 ML VIAL INJ IV SCH ×2 (08:58→22:15)
[2022-05-21] MEDS: FLUCONAZOLE 200MG/100ML 100 ML IV SCH (08:59)
[2022-05-21] MEDS: PHENYLEPHRINE INJ 80 MG in SODIUM CHL 0.9% 242 ML IV SCH (09:52)
[2022-05-21] MEDS ORDERED: SODIUM CHL 0.9% IV ONE (10:00)
[2022-05-21] MEDS ORDERED: POTASSIUM PHOSPHATE IV ONE (10:00)
[2022-05-21] MEDS: fentaNYL Drip 2500mCg/250mlNS 250 ML IV SCH (12:04)
[2022-05-21] MEDS: PROPOFOL 100 ML IV SCH (12:14)
[2022-05-21] MEDS: MIDAZOLAM DRIP 50 mg/50mL 50 ML IV SCH (16:51)
[2022-05-21] MEDS: TPN PER PHARMACY IV NR ×9 (20:57)
[2022-05-22] VITALS (82 sets, daily range): BP systolic 88–113; BP diastolic 50–66
[2022-05-22] MEDS: ALBUTEROL MEDNEB 2.5 mg/3ml NEB NEB PRN ×4 (00:17→18:29)
[2022-05-22] MEDS: ACETYLCYSTEINE 10 %(100MG/ML) SOL 4ML NEB SCH ×4 (00:17→18:29)
[2022-05-22] MEDS: IPRATROPIUM BROM 0.5 MG/2.5ML INH SOL NEB PRN ×4 (00:17→18:29)
[2022-05-22] MEDS: fentaNYL Drip 2500mCg/250mlNS 250 ML IV SCH ×2 (00:19→13:20)
[2022-05-22] MEDS: MIDAZOLAM DRIP 50 mg/50mL 50 ML IV SCH ×2 (00:19→13:21)
[2022-05-22] MEDS: PROPOFOL 100 ML IV SCH ×3 (00:19→19:05)
[2022-05-22] MEDS: PIPERACILLIN-TAZOB 3.375GM 100 ML IV SCH ×4 (00:19→17:22)
[2022-05-22] MEDS: ACCU-CHEK COMFORT CURVE STRIP VI SCH ×4 (00:20→17:22)
[2022-05-22] MEDS: InsuLIN REG 1unit/0.01ml Soln (100units/ml) SC SCH ×4 (00:34→17:22)
[2022-05-22] MEDS: PHENYLEPHRINE INJ 80 MG in SODIUM CHL 0.9% 242 ML IV SCH ×3 (02:50→19:05)
[2022-05-22 04:33] LABS: Eosinophils # (auto) 0.5 10 ^3/uL (0-0.8); Red Cell Distribution Width 17.1 % (11.8-14.3)
[2022-05-22 04:35] LABS: Basophils # (auto) 0 10 ^3/uL (0-0.2); Basophils % (auto) 0.3 % (0.0-2.0); Eosinophils % (auto) 3.7 % (0.0-7.0); Hematocrit 21.4 % (41.0-53.0); Hemoglobin 7.3 g/dL (13.5-17.5); Lymphocytes # (auto) 0.9 10 ^3/uL (0.4-5.4); Lymphocytes % (auto) 6.6 % (10.0-50.0); Mean Corpuscular Hemoglobin 31.4 pg (28.0-32.0); Mean Corpuscular Hgb Conc. 34.1 g/dL (32.0-36.0); Mean Corpuscular Volume 92.1 fL (80.0-100.0); Monocytes # (auto) 1.4 10 ^3/uL (0-1.3); Monocytes % (auto) 9.9 % (0.0-12.0); Neutrophils # (auto) 11.4 10 ^3/uL (1.6-8.6); Neutrophils % (auto) 79.5 % (37.0-80.0); Red Blood Cells 2.33 10^6/uL (4.5-5.90); White Blood Cell 14.3 10^3/uL (4.4-10.8)
[2022-05-22 04:47] LABS: Albumin 1.3 g/dL (3.4-5.0); BUN/Creatinine Ratio 47.5; Calcium 6.9 mg/dL (8.5-10.1); Potassium 3.2 mmol/L (3.5-5.1)
[2022-05-22 04:50] LABS: Bilirubin, Total 1.1 mg/dL (0.2-1.0); Phosphorus 2.5 mg/dL (2.5-4.90); Total Protein 5.7 g/dL (6.4-8.2)
[2022-05-22] MEDS: BUMETANIDE 2.5mg/10ml (0.25 mg/ml) INJ IV SCH ×2 (06:08→17:22)
[2022-05-22] MEDS: INSULIN LANTUS (GLARGINE) 1 /0.01ml (100units/ml) SC SCH (06:32)
[2022-05-22] MEDS: NOREPINEPHRINE BITARTRATE 32 MG in SODIUM CHL 0.9% 218 ML IV SCH (07:45)
[2022-05-22] MEDS: SODIUM CHLOR 0.9% PF (SALINE LOCK) 10ML VIAL/SYR IV SCH ×2 (07:52→22:00)
[2022-05-22] MEDS: PANTOPRAZOLE 40 MG/10 ML VIAL INJ IV SCH ×2 (08:51→22:00)
[2022-05-22] MEDS: FLUCONAZOLE 200MG/100ML 100 ML IV SCH (08:51)
[2022-05-22] MEDS ORDERED: POTASSIUM CHL 20MEQ/100ML 100 ML IV ONE (09:30)
[2022-05-22] MEDS: DOXYCYCLINE 100MG/250ML 250 ML IV SCH ×2 (10:13→23:00)
[2022-05-22] MEDS ORDERED: POTASSIUM PHOSPHATE 22 MEQ in SODIUM CHL 0.9% 100 ML IV ONE (12:00)
[2022-05-22] MEDS: TPN PER PHARMACY IV NR ×9 (19:55)
[2022-05-22] MEDS ORDERED: TPN PER PHARMACY IV NR ×10 (20:00)
[2022-05-23] VITALS (91 sets, daily range): BP systolic 85–112; BP diastolic 50–67
[2022-05-23] MEDS: MIDAZOLAM DRIP 50 mg/50mL 50 ML IV SCH (00:22)
[2022-05-23] MEDS: ACCU-CHEK COMFORT CURVE STRIP VI SCH ×5 (00:22→23:05)
[2022-05-23] MEDS: PIPERACILLIN-TAZOB 3.375GM 100 ML IV SCH ×5 (00:22→23:05)
[2022-05-23] MEDS: InsuLIN REG 1unit/0.01ml Soln (100units/ml) SC SCH ×5 (00:27→23:05)
[2022-05-23 04:22] LABS: Basophils # (auto) 0.1 10 ^3/uL (0-0.2); Eosinophils # (auto) 0.4 10 ^3/uL (0-0.8); Hematocrit 21.4 % (41.0-53.0); Hemoglobin 7.2 g/dL (13.5-17.5); Lymphocytes # (auto) 0.9 10 ^3/uL (0.4-5.4); Mean Corpuscular Hemoglobin 29.9 pg (28.0-32.0)
[2022-05-23 04:23] LABS: Basophils % (auto) 0.9 % (0.0-2.0); Eosinophils % (auto) 4.4 % (0.0-7.0); Mean Corpuscular Hgb Conc. 33.6 g/dL (32.0-36.0); Monocytes % (auto) 10.3 % (0.0-12.0); Neutrophils % (auto) 74.4 % (37.0-80.0); Red Cell Distribution Width 17.4 % (11.8-14.3); White Blood Cell 9.4 10^3/uL (4.4-10.8)
[2022-05-23 04:43] LABS: INR 1.18 (0.9-1.15); Partial Thromboplastin Time 39.6 sec (24.6-33.4)
[2022-05-23 06:09] LABS: Potassium 3.6 mmol/L (3.5-5.1)
[2022-05-23 06:10] LABS: BUN/Creatinine Ratio 54.9
[2022-05-23 06:11] LABS: Calcium 7.3 mg/dL (8.5-10.1); Phosphorus 3.3 mg/dL (2.5-4.90)
[2022-05-23 06:12] LABS: Albumin 1.4 g/dL (3.4-5.0); Total Protein 5.5 g/dL (6.4-8.2)
[2022-05-23 06:14] LABS: Magnesium 2.2 mg/dL (1.6-2.6)
[2022-05-23] MEDS: BUMETANIDE 2.5mg/10ml (0.25 mg/ml) INJ IV SCH ×2 (06:27→17:18)
[2022-05-23] MEDS: INSULIN LANTUS (GLARGINE) 1 /0.01ml (100units/ml) SC SCH (06:50)
[2022-05-23] MEDS: ACETYLCYSTEINE 10 %(100MG/ML) SOL 4ML NEB SCH ×4 (07:13→18:48)
[2022-05-23] MEDS: ALBUTEROL MEDNEB 2.5 mg/3ml NEB NEB PRN ×4 (07:13→18:48)
[2022-05-23] MEDS: NOREPINEPHRINE BITARTRATE 32 MG in SODIUM CHL 0.9% 218 ML IV SCH ×2 (07:21→20:25)
[2022-05-23] MEDS: SODIUM CHLOR 0.9% PF (SALINE LOCK) 10ML VIAL/SYR IV SCH ×2 (07:21→19:45)
[2022-05-23] MEDS: PANTOPRAZOLE 40 MG/10 ML VIAL INJ IV SCH ×2 (08:31→19:55)
[2022-05-23] MEDS: FLUCONAZOLE 200MG/100ML 100 ML IV SCH (08:31)
[2022-05-23] MEDS: DOXYCYCLINE 100MG/250ML 250 ML IV SCH ×2 (09:47→21:11)
[2022-05-23] MEDS: fentaNYL Drip 2500mCg/250mlNS 250 ML IV SCH (11:54)
[2022-05-23] MEDS: IPRATROPIUM BROM 0.5 MG/2.5ML INH SOL NEB PRN ×2 (18:48)
[2022-05-23] MEDS ORDERED: TPN PER PHARMACY IV NR ×11 (20:00)
[2022-05-23] MEDS: PHENYLEPHRINE INJ 80 MG in SODIUM CHL 0.9% 242 ML IV SCH (20:25)
[2022-05-24] VITALS (103 sets, daily range): BP systolic 93–149; BP diastolic 33–70
[2022-05-24] MEDS: fentaNYL Drip 2500mCg/250mlNS 250 ML IV SCH ×2 (00:28→17:15)
[2022-05-24] MEDS: PROPOFOL 100 ML IV SCH ×3 (00:28→11:14)
[2022-05-24] MEDS: ALBUTEROL MEDNEB 2.5 mg/3ml NEB NEB PRN ×4 (00:31→18:34)
[2022-05-24] MEDS: IPRATROPIUM BROM 0.5 MG/2.5ML INH SOL NEB PRN ×4 (00:31→18:34)
[2022-05-24] MEDS: ACETYLCYSTEINE 10 %(100MG/ML) SOL 4ML NEB SCH ×4 (00:32→18:35)
[2022-05-24 04:39] LABS: Basophils # (auto) 0 10 ^3/uL (0-0.2); Eosinophils # (auto) 0.3 10 ^3/uL (0-0.8); Eosinophils % (auto) 3.2 % (0.0-7.0); Hemoglobin 7.6 g/dL (13.5-17.5); Lymphocytes # (auto) 0.7 10 ^3/uL (0.4-5.4); Nucleated Red Blood Cells % 0.1 %
[2022-05-24 04:42] LABS: Basophils % (auto) 0.4 % (0.0-2.0); Hematocrit 22.6 % (41.0-53.0); Lymphocytes % (auto) 8.3 % (10.0-50.0); Mean Corpuscular Hemoglobin 30.9 pg (28.0-32.0); Mean Corpuscular Hgb Conc. 33.7 g/dL (32.0-36.0); Mean Corpuscular Volume 91.6 fL (80.0-100.0); Monocytes % (auto) 12.5 % (0.0-12.0); Neutrophils # (auto) 6.3 10 ^3/uL (1.6-8.6); Neutrophils % (auto) 75.6 % (37.0-80.0); Red Blood Cells 2.47 10^6/uL (4.5-5.90); Red Cell Distribution Width 16.9 % (11.8-14.3); White Blood Cell 8.3 10^3/uL (4.4-10.8)
[2022-05-24 04:44] LABS: Albumin 1.4 g/dL (3.4-5.0); BUN/Creatinine Ratio 55.6; Calcium 7.2 mg/dL (8.5-10.1); INR 1.16 (0.9-1.15); Magnesium 2.4 mg/dL (1.6-2.6); Partial Thromboplastin Time 39.6 sec (24.6-33.4); Potassium 3.6 mmol/L (3.5-5.1)
[2022-05-24 04:48] LABS: Phosphorus 3.1 mg/dL (2.5-4.90); Total Protein 5.9 g/dL (6.4-8.2)
[2022-05-24] MEDS: BUMETANIDE 2.5mg/10ml (0.25 mg/ml) INJ IV SCH ×2 (06:02→18:16)
[2022-05-24] MEDS: PIPERACILLIN-TAZOB 3.375GM 100 ML IV SCH ×3 (06:04→18:15)
[2022-05-24] MEDS: ACCU-CHEK COMFORT CURVE STRIP VI SCH ×3 (06:06→18:21)
[2022-05-24] MEDS: InsuLIN REG 1unit/0.01ml Soln (100units/ml) SC SCH ×3 (06:15→18:09)
[2022-05-24] MEDS: INSULIN LANTUS (GLARGINE) 1 /0.01ml (100units/ml) SC SCH (06:15)
[2022-05-24] MEDS: PANTOPRAZOLE 40 MG/10 ML VIAL INJ IV SCH ×2 (10:08→22:29)
[2022-05-24] MEDS: FLUCONAZOLE 200MG/100ML 100 ML IV SCH (10:08)
[2022-05-24] MEDS: SODIUM CHLOR 0.9% PF (SALINE LOCK) 10ML VIAL/SYR IV SCH ×2 (10:08→22:30)
[2022-05-24] MEDS: DOXYCYCLINE 100MG/250ML 250 ML IV SCH ×2 (11:13→23:52)
[2022-05-24] MEDS: MIDAZOLAM DRIP 50 mg/50mL 50 ML IV SCH (18:00)
[2022-05-24] MEDS: PHENYLEPHRINE INJ 80 MG in SODIUM CHL 0.9% 242 ML IV SCH (19:05)
[2022-05-24] MEDS ORDERED: TPN PER PHARMACY IV NR ×10 (20:00)
[2022-05-25] VITALS (77 sets, daily range): BP systolic 90–174; BP diastolic 32–73
[2022-05-25] MEDS: ACETYLCYSTEINE 10 %(100MG/ML) SOL 4ML NEB SCH ×4 (00:28→18:46)
[2022-05-25] MEDS: ALBUTEROL MEDNEB 2.5 mg/3ml NEB NEB PRN ×4 (00:28→18:45)
[2022-05-25] MEDS: IPRATROPIUM BROM 0.5 MG/2.5ML INH SOL NEB PRN ×4 (00:28→18:45)
[2022-05-25] MEDS: ACCU-CHEK COMFORT CURVE STRIP VI SCH ×4 (01:05→17:31)
[2022-05-25] MEDS: InsuLIN REG 1unit/0.01ml Soln (100units/ml) SC SCH ×4 (01:15→17:30)
[2022-05-25] MEDS: PIPERACILLIN-TAZOB 3.375GM 100 ML IV SCH ×4 (02:00→18:04)
[2022-05-25 05:22] LABS: Potassium 3.1 mmol/L (3.5-5.1)
[2022-05-25 05:27] LABS: Albumin 1.5 g/dL (3.4-5.0); BUN/Creatinine Ratio 56.6; Bilirubin, Total 1.2 mg/dL (0.2-1.0); Calcium 7.6 mg/dL (8.5-10.1); Magnesium 2.3 mg/dL (1.6-2.6); Total Protein 6.5 g/dL (6.4-8.2)
[2022-05-25] MEDS: BUMETANIDE 2.5mg/10ml (0.25 mg/ml) INJ IV SCH ×2 (06:00→18:04)
[2022-05-25] MEDS: NOREPINEPHRINE BITARTRATE 32 MG in SODIUM CHL 0.9% 218 ML IV SCH (07:45)
[2022-05-25] MEDS: INSULIN LANTUS (GLARGINE) 1 /0.01ml (100units/ml) SC SCH (08:07)
[2022-05-25] MEDS ORDERED: POTASSIUM PHOSPHATE 44 MEQ in D5W 5% 250 ML IV ONE ×2 (08:30→10:00)
[2022-05-25] MEDS ORDERED: POTASSIUM CHL 20MEQ/100ML 100 ML IV ONE (08:30)
[2022-05-25] MEDS: PROPOFOL 100 ML IV SCH ×2 (08:39→12:12)
[2022-05-25] MEDS: fentaNYL Drip 2500mCg/250mlNS 250 ML IV SCH (08:44)
[2022-05-25] MEDS: SODIUM CHLOR 0.9% PF (SALINE LOCK) 10ML VIAL/SYR IV SCH ×2 (10:00→22:00)
[2022-05-25] MEDS: FLUCONAZOLE 200MG/100ML 100 ML IV SCH (10:25)
[2022-05-25] MEDS: PANTOPRAZOLE 40 MG/10 ML VIAL INJ IV SCH ×2 (10:25→22:00)
[2022-05-25 11:57] LABS: Basophils # (auto) 0 10 ^3/uL (0-0.2); Eosinophils # (auto) 0.2 10 ^3/uL (0-0.8); Lymphocytes # (auto) 0.7 10 ^3/uL (0.4-5.4); Mean Corpuscular Hemoglobin 29.4 pg (28.0-32.0); Neutrophils # (auto) 4.6 10 ^3/uL (1.6-8.6)
[2022-05-25 12:01] LABS: Basophils % (auto) 0.7 % (0.0-2.0); Eosinophils % (auto) 2.6 % (0.0-7.0); Hematocrit 21.7 % (41.0-53.0); Hemoglobin 7.2 g/dL (13.5-17.5); Lymphocytes % (auto) 10.4 % (10.0-50.0); Mean Corpuscular Volume 89.1 fL (80.0-100.0); Monocytes # (auto) 0.8 10 ^3/uL (0-1.3); Monocytes % (auto) 13.4 % (0.0-12.0); Neutrophils % (auto) 72.9 % (37.0-80.0); Red Blood Cells 2.44 10^6/uL (4.5-5.90); Red Cell Distribution Width 17.2 % (11.8-14.3); White Blood Cell 6.3 10^3/uL (4.4-10.8)
[2022-05-25] MEDS: DOXYCYCLINE 100MG/250ML 250 ML IV SCH (12:04)
[2022-05-25] MEDS ORDERED: LACTULOSE 10g/15ml SOLN 473ML PR ONE (16:45)
[2022-05-25] MEDS: MIDAZOLAM DRIP 50 mg/50mL 50 ML IV SCH (17:32)
[2022-05-25] MEDS ORDERED: POTASSIUM EFFERVESENT TAB 25 MEQ PO ONE (17:45)
[2022-05-25] MEDS ORDERED: SODIUM PHOSPHATES IV NR ×8 (20:00)
[2022-05-25] MEDS ORDERED: POTASSIUM CHLORIDE IV NR ×8 (20:00)
[2022-05-25] MEDS ORDERED: POTASSIUM PHOSPHATE IV NR ×8 (20:00)
[2022-05-25] MEDS ORDERED: [UNRECOGNIZED DRUG - OTHER] IV NR ×8 (20:00)
[2022-05-26] VITALS (111 sets, daily range): BP systolic 113–153; BP diastolic 41–72
[2022-05-26] MEDS: ACETYLCYSTEINE 10 %(100MG/ML) SOL 4ML NEB SCH ×4 (00:21→19:02)
[2022-05-26] MEDS: ALBUTEROL MEDNEB 2.5 mg/3ml NEB NEB PRN ×4 (00:21→19:02)
[2022-05-26] MEDS: IPRATROPIUM BROM 0.5 MG/2.5ML INH SOL NEB PRN ×4 (00:21→19:02)
[2022-05-26] MEDS: DOXYCYCLINE 100MG/250ML 250 ML IV SCH ×3 (00:25→22:39)
[2022-05-26] MEDS: BUMETANIDE 2.5mg/10ml (0.25 mg/ml) INJ IV SCH ×2 (06:00→17:48)
[2022-05-26] MEDS: PIPERACILLIN-TAZOB 3.375GM 100 ML IV SCH ×4 (06:00→17:48)
[2022-05-26] MEDS: INSULIN LANTUS (GLARGINE) 1 /0.01ml (100units/ml) SC SCH (07:45)
[2022-05-26] MEDS: ACCU-CHEK COMFORT CURVE STRIP VI SCH ×4 (07:45→17:56)
[2022-05-26] MEDS: InsuLIN REG 1unit/0.01ml Soln (100units/ml) SC SCH ×4 (07:45→17:52)
[2022-05-26] MEDS: NOREPINEPHRINE BITARTRATE 32 MG in SODIUM CHL 0.9% 218 ML IV SCH (07:45)
[2022-05-26 08:00] LABS: Albumin 1.4 g/dL (3.4-5.0); Calcium 7.5 mg/dL (8.5-10.1); Magnesium 2.2 mg/dL (1.6-2.6); Potassium 3.4 mmol/L (3.5-5.1)
[2022-05-26 08:03] LABS: BUN/Creatinine Ratio 60.4; Bilirubin, Total 0.8 mg/dL (0.2-1.0); Total Protein 6.2 g/dL (6.4-8.2)
[2022-05-26 08:29] LABS: Basophils # (auto) 0 10 ^3/uL (0-0.2); Basophils % (auto) 0.7 % (0.0-2.0); Eosinophils # (auto) 0.2 10 ^3/uL (0-0.8); Eosinophils % (auto) 4.3 % (0.0-7.0); Hematocrit 20.8 % (41.0-53.0); Lymphocytes # (auto) 0.7 10 ^3/uL (0.4-5.4); Mean Corpuscular Hemoglobin 29.4 pg (28.0-32.0); Mean Corpuscular Hgb Conc. 33.6 g/dL (32.0-36.0); Mean Corpuscular Volume 87.5 fL (80.0-100.0); Monocytes # (auto) 0.8 10 ^3/uL (0-1.3); Monocytes % (auto) 16.5 % (0.0-12.0); Neutrophils # (auto) 3.1 10 ^3/uL (1.6-8.6); Neutrophils % (auto) 63.5 % (37.0-80.0); Nucleated Red Blood Cells % 0.1 %; Red Blood Cells 2.38 10^6/uL (4.5-5.90)
[2022-05-26] MEDS ORDERED: POTASSIUM CHL 20MEQ/100ML 100 ML IV ONE (08:45)
[2022-05-26] MEDS: PHENYLEPHRINE INJ 80 MG in SODIUM CHL 0.9% 242 ML IV SCH (10:15)
[2022-05-26] MEDS: PANTOPRAZOLE 40 MG/10 ML VIAL INJ IV SCH ×2 (11:02→22:39)
[2022-05-26] MEDS: SODIUM CHLOR 0.9% PF (SALINE LOCK) 10ML VIAL/SYR IV SCH ×2 (11:02→22:00)
[2022-05-26] MEDS: FLUCONAZOLE 200MG/100ML 100 ML IV SCH (11:03)
[2022-05-26] MEDS: PROPOFOL 100 ML IV SCH ×4 (11:09→21:25)
[2022-05-26] MEDS: fentaNYL Drip 2500mCg/250mlNS 250 ML IV SCH ×2 (11:09→22:35)
[2022-05-26 14:47] LABS: INR 1.22 (0.9-1.15)
[2022-05-26] MEDS: MIDAZOLAM DRIP 50 mg/50mL 50 ML IV SCH (19:00)
[2022-05-26] MEDS ORDERED: TPN PER PHARMACY IV NR ×9 (20:00)
[2022-05-27] VITALS (98 sets, daily range): BP systolic 111–148; BP diastolic 43–75
[2022-05-27] MEDS: ALBUTEROL MEDNEB 2.5 mg/3ml NEB NEB PRN ×4 (00:06→18:51)
[2022-05-27] MEDS: IPRATROPIUM BROM 0.5 MG/2.5ML INH SOL NEB PRN ×4 (00:06→18:51)
[2022-05-27] MEDS: ACETYLCYSTEINE 10 %(100MG/ML) SOL 4ML NEB SCH ×4 (00:06→18:51)
[2022-05-27] MEDS: PIPERACILLIN-TAZOB 3.375GM 100 ML IV SCH ×4 (00:24→18:36)
[2022-05-27] MEDS: ACCU-CHEK COMFORT CURVE STRIP VI SCH ×4 (00:24→18:37)
[2022-05-27] MEDS: InsuLIN REG 1unit/0.01ml Soln (100units/ml) SC SCH ×4 (00:25→18:38)
[2022-05-27] MEDS: PROPOFOL 100 ML IV SCH ×5 (01:00→22:17)
[2022-05-27 04:28] LABS: Eosinophils # (auto) 0.2 10 ^3/uL (0-0.8); Hemoglobin 7.9 g/dL (13.5-17.5); Lymphocytes # (auto) 0.7 10 ^3/uL (0.4-5.4); Monocytes # (auto) 0.7 10 ^3/uL (0-1.3); Red Cell Distribution Width 16.7 % (11.8-14.3)
[2022-05-27 04:44] LABS: INR 1.2 (0.9-1.15)
[2022-05-27 04:49] LABS: Potassium 3.7 mmol/L (3.5-5.1)
[2022-05-27 04:54] LABS: Albumin 1.4 g/dL (3.4-5.0); BUN/Creatinine Ratio 62.3; Bilirubin, Total 0.8 mg/dL (0.2-1.0); Calcium 7.3 mg/dL (8.5-10.1); Magnesium 2.1 mg/dL (1.6-2.6); Phosphorus 3.8 mg/dL (2.5-4.90); Total Protein 6.2 g/dL (6.4-8.2)
[2022-05-27 04:55] LABS: Basophils # (auto) 0.1 10 ^3/uL (0-0.2); Basophils % (auto) 1.4 % (0.0-2.0); Eosinophils % (auto) 5.2 % (0.0-7.0); Hematocrit 22.9 % (41.0-53.0); Lymphocytes % (auto) 14.3 % (10.0-50.0); Mean Corpuscular Hgb Conc. 34.6 g/dL (32.0-36.0); Mean Corpuscular Volume 89.6 fL (80.0-100.0); Monocytes % (auto) 15.9 % (0.0-12.0); Neutrophils # (auto) 2.9 10 ^3/uL (1.6-8.6); Neutrophils % (auto) 63.2 % (37.0-80.0); Nucleated Red Blood Cells % 0.2 %; Red Blood Cells 2.55 10^6/uL (4.5-5.90); White Blood Cell 4.6 10^3/uL (4.4-10.8)
[2022-05-27] MEDS: BUMETANIDE 2.5mg/10ml (0.25 mg/ml) INJ IV SCH ×2 (05:51→18:36)
[2022-05-27] MEDS: INSULIN LANTUS (GLARGINE) 1 /0.01ml (100units/ml) SC SCH (05:51)
[2022-05-27] MEDS ORDERED: LIDOCAINE 1%HCL (LOCAL ANESTH) 10 ML MDV ONE (07:03)
[2022-05-27] MEDS ORDERED: HYDROmorphone HCL 2 MG/ML VL/or syr ONE (07:45)
[2022-05-27] MEDS ORDERED: fentaNYL CITRATE 100 MCG/2 ML VL ONE (07:45)
[2022-05-27] MEDS ORDERED: MIDAZOLAM HCL 2MG/2ML 2ml VIAL (1mg/ml) ONE (07:45)
[2022-05-27] MEDS: NOREPINEPHRINE BITARTRATE 32 MG in SODIUM CHL 0.9% 218 ML IV SCH (07:45)
[2022-05-27] MEDS ORDERED: LIDOCAINE W/ EPINEPHRINE 1% 20ML VIAL ONE (08:21)
[2022-05-27] MEDS ORDERED: PROPOFOL 10 MG/ML 20 ML IV ONE (08:29)
[2022-05-27] MEDS ORDERED: hydrALAZINE HCL 20 MG/ML VL IV PRN (09:15)
[2022-05-27] MEDS ORDERED: ONDANSETRON HCL 4 MG/2 ML VIAL IV PRN (09:15)
[2022-05-27] MEDS ORDERED: HYDROmorphone HCL 2 MG/ML VL/or syr IV PRN (09:15)
[2022-05-27] MEDS ORDERED: ACCU-CHEK COMFORT CURVE STRIP VI ONE (09:15)
[2022-05-27] MEDS ORDERED: LABETALOL HCL 5 MG/ML 4ML SYRINGE IV PRN (09:15)
[2022-05-27] MEDS ORDERED: MIDAZOLAM HCL 2MG/2ML 2ml VIAL (1mg/ml) IV PRN (09:15)
[2022-05-27] MEDS ORDERED: ePHEDrine SULFATE 50 MG/ML AMP IV PRN (09:15)
[2022-05-27] MEDS ORDERED: MORPHINE SULFATE 4 MG/ML SYR/VIAL IV PRN (09:15)
[2022-05-27] MEDS: FLUCONAZOLE 200MG/100ML 100 ML IV SCH (09:32)
[2022-05-27] MEDS: PANTOPRAZOLE 40 MG/10 ML VIAL INJ IV SCH ×2 (09:32→21:08)
[2022-05-27] MEDS: fentaNYL Drip 2500mCg/250mlNS 250 ML IV SCH ×2 (09:36→22:14)
[2022-05-27] MEDS: SODIUM CHLOR 0.9% PF (SALINE LOCK) 10ML VIAL/SYR IV SCH ×2 (10:00→21:08)
[2022-05-27] MEDS: PHENYLEPHRINE INJ 80 MG in SODIUM CHL 0.9% 242 ML IV SCH (10:15)
[2022-05-27] MEDS: DOXYCYCLINE 100MG/250ML 250 ML IV SCH ×2 (10:49→21:08)
[2022-05-27] MEDS: MIDAZOLAM DRIP 50 mg/50mL 50 ML IV SCH (14:01)
[2022-05-27] MEDS ORDERED: TPN PER PHARMACY IV NR ×11 (20:00)
[2022-05-28] VITALS (94 sets, daily range): BP systolic 112–180; BP diastolic 42–69
[2022-05-28] MEDS: ACCU-CHEK COMFORT CURVE STRIP VI SCH ×4 (00:29→17:57)
[2022-05-28] MEDS: InsuLIN REG 1unit/0.01ml Soln (100units/ml) SC SCH ×4 (00:30→18:00)
[2022-05-28] MEDS: IPRATROPIUM BROM 0.5 MG/2.5ML INH SOL NEB PRN ×4 (00:45→18:17)
[2022-05-28] MEDS: ALBUTEROL MEDNEB 2.5 mg/3ml NEB NEB PRN ×2 (00:45→18:18)
[2022-05-28] MEDS: ACETYLCYSTEINE 10 %(100MG/ML) SOL 4ML NEB SCH ×4 (00:45→18:17)
[2022-05-28] MEDS: PIPERACILLIN-TAZOB 3.375GM 100 ML IV SCH ×4 (00:46→18:00)
[2022-05-28 04:04] LABS: Potassium 4.6 mmol/L (3.5-5.1)
[2022-05-28 04:12] LABS: Albumin 1.5 g/dL (3.4-5.0); BUN/Creatinine Ratio 52.3; Bilirubin, Total 1.1 mg/dL (0.2-1.0); Calcium 7.7 mg/dL (8.5-10.1); Magnesium 2.3 mg/dL (1.6-2.6); Phosphorus 4.1 mg/dL (2.5-4.90); Total Protein 6.4 g/dL (6.4-8.2)
[2022-05-28] MEDS: BUMETANIDE 2.5mg/10ml (0.25 mg/ml) INJ IV SCH ×2 (05:27→17:51)
[2022-05-28] MEDS: INSULIN LANTUS (GLARGINE) 1 /0.01ml (100units/ml) SC SCH (05:33)
[2022-05-28] MEDS: NOREPINEPHRINE BITARTRATE 32 MG in SODIUM CHL 0.9% 218 ML IV SCH (07:45)
[2022-05-28] MEDS: PHENYLEPHRINE INJ 80 MG in SODIUM CHL 0.9% 242 ML IV SCH (10:15)
[2022-05-28] MEDS: SODIUM CHLOR 0.9% PF (SALINE LOCK) 10ML VIAL/SYR IV SCH ×2 (10:41→22:22)
[2022-05-28] MEDS: PANTOPRAZOLE 40 MG/10 ML VIAL INJ IV SCH ×2 (10:41→22:21)
[2022-05-28] MEDS: FLUCONAZOLE 200MG/100ML 100 ML IV SCH (10:41)
[2022-05-28] MEDS ORDERED: LABETALOL HCL 5 MG/ML 4ML SYRINGE IV ONE ×3 (11:30→13:45)
[2022-05-28] MEDS: DOXYCYCLINE 100MG/250ML 250 ML IV SCH ×2 (12:05→22:22)
[2022-05-28] MEDS: PROPOFOL 100 ML IV SCH ×2 (15:27→21:10)
[2022-05-28] MEDS ORDERED: hydrALAZINE HCL 20 MG/ML VL ONE (17:29)
[2022-05-28] MEDS: MIDAZOLAM DRIP 50 mg/50mL 50 ML IV SCH (18:00)
[2022-05-28] MEDS ORDERED: ALBUTEROL SULF 2.5 MG/0.5ML(0.5%) NEB SOLN ONE (18:11)
[2022-05-28] MEDS: METOPROLOL TARTRATE 1MG/1ML-5ML VIAL IV SCH (18:21)
[2022-05-28] MEDS ORDERED: TPN PER PHARMACY IV NR ×10 (20:00)
[2022-05-29] VITALS (107 sets, daily range): BP systolic 129–173; BP diastolic 40–64
[2022-05-29] MEDS: IPRATROPIUM BROM 0.5 MG/2.5ML INH SOL NEB PRN ×3 (00:10→18:23)
[2022-05-29] MEDS: ACETYLCYSTEINE 10 %(100MG/ML) SOL 4ML NEB SCH ×4 (00:10→18:23)
[2022-05-29] MEDS: ALBUTEROL SULF 2.5 MG/0.5ML(0.5%) NEB SOLN NEB PRN ×3 (00:10→18:23)
[2022-05-29] MEDS: PIPERACILLIN-TAZOB 3.375GM 100 ML IV SCH ×4 (00:12→18:00)
[2022-05-29] MEDS: ACCU-CHEK COMFORT CURVE STRIP VI SCH ×4 (00:13→17:31)
[2022-05-29] MEDS: METOPROLOL TARTRATE 1MG/1ML-5ML VIAL IV SCH ×4 (00:13→17:56)
[2022-05-29] MEDS: InsuLIN REG 1unit/0.01ml Soln (100units/ml) SC SCH ×4 (00:17→17:33)
[2022-05-29] MEDS: PROPOFOL 100 ML IV SCH ×2 (00:23→05:01)
[2022-05-29 03:54] LABS: Basophils # (auto) 0 10 ^3/uL (0-0.2); Eosinophils # (auto) 0 10 ^3/uL (0-0.8); Lymphocytes # (auto) 0.5 10 ^3/uL (0.4-5.4); Mean Corpuscular Hgb Conc. 33.9 g/dL (32.0-36.0); Red Cell Distribution Width 17.4 % (11.8-14.3); White Blood Cell 4.5 10^3/uL (4.4-10.8)
[2022-05-29 03:59] LABS: Basophils % (auto) 0.6 % (0.0-2.0); Eosinophils % (auto) 0.2 % (0.0-7.0); Hematocrit 22.9 % (41.0-53.0); Hemoglobin 7.8 g/dL (13.5-17.5); Lymphocytes % (auto) 11.4 % (10.0-50.0); Mean Corpuscular Hemoglobin 29.7 pg (28.0-32.0); Mean Corpuscular Volume 87.4 fL (80.0-100.0); Monocytes # (auto) 0.5 10 ^3/uL (0-1.3); Monocytes % (auto) 11.7 % (0.0-12.0); Neutrophils # (auto) 3.4 10 ^3/uL (1.6-8.6); Neutrophils % (auto) 76.1 % (37.0-80.0); Red Blood Cells 2.62 10^6/uL (4.5-5.90)
[2022-05-29 04:15] LABS: Potassium 3.5 mmol/L (3.5-5.1)
[2022-05-29 04:21] LABS: Albumin 1.4 g/dL (3.4-5.0); BUN/Creatinine Ratio 70.2; Calcium 7.2 mg/dL (8.5-10.1); Magnesium 2.1 mg/dL (1.6-2.6)
[2022-05-29 04:24] LABS: Bilirubin, Total 0.9 mg/dL (0.2-1.0); Phosphorus 2.3 mg/dL (2.5-4.90); Total Protein 6.4 g/dL (6.4-8.2)
[2022-05-29] MEDS: INSULIN LANTUS (GLARGINE) 1 /0.01ml (100units/ml) SC SCH (06:22)
[2022-05-29] MEDS: BUMETANIDE 2.5mg/10ml (0.25 mg/ml) INJ IV SCH ×2 (06:24→17:36)
[2022-05-29] MEDS: NOREPINEPHRINE BITARTRATE 32 MG in SODIUM CHL 0.9% 218 ML IV SCH (07:45)
[2022-05-29] MEDS: hydrALAZINE HCL 20 MG/ML VL IV PRN (08:49)
[2022-05-29] MEDS ORDERED: POTASSIUM PHOSPHATE 22 MEQ in SODIUM CHL 0.9% 100 ML IV ONE (09:30)
[2022-05-29] MEDS: PANTOPRAZOLE 40 MG/10 ML VIAL INJ IV SCH ×2 (10:01→21:43)
[2022-05-29] MEDS: FLUCONAZOLE 200MG/100ML 100 ML IV SCH (10:01)
[2022-05-29] MEDS: SODIUM CHLOR 0.9% PF (SALINE LOCK) 10ML VIAL/SYR IV SCH ×2 (10:01→21:44)
[2022-05-29] MEDS: PHENYLEPHRINE INJ 80 MG in SODIUM CHL 0.9% 242 ML IV SCH (10:15)
[2022-05-29] MEDS: DOXYCYCLINE 100MG/250ML 250 ML IV SCH ×2 (16:08→23:14)
[2022-05-29] MEDS: MIDAZOLAM DRIP 50 mg/50mL 50 ML IV SCH (17:38)
[2022-05-29] MEDS: fentaNYL Drip 2500mCg/250mlNS 250 ML IV SCH (17:55)
[2022-05-29] MEDS ORDERED: TPN PER PHARMACY IV NR ×11 (20:00)
[2022-05-30] VITALS (107 sets, daily range): BP systolic 113–191; BP diastolic 31–64
[2022-05-30] MEDS: ACCU-CHEK COMFORT CURVE STRIP VI SCH ×4 (00:01→18:20)
[2022-05-30] MEDS: InsuLIN REG 1unit/0.01ml Soln (100units/ml) SC SCH ×4 (00:02→18:27)
[2022-05-30] MEDS: METOPROLOL TARTRATE 1MG/1ML-5ML VIAL IV SCH ×4 (00:03→18:46)
[2022-05-30] MEDS: ACETYLCYSTEINE 10 %(100MG/ML) SOL 4ML NEB SCH ×3 (00:21→18:55)
[2022-05-30] MEDS: ALBUTEROL SULF 2.5 MG/0.5ML(0.5%) NEB SOLN NEB PRN ×3 (00:21→18:55)
[2022-05-30] MEDS: IPRATROPIUM BROM 0.5 MG/2.5ML INH SOL NEB PRN ×3 (00:21→18:55)
[2022-05-30] MEDS: PIPERACILLIN-TAZOB 3.375GM 100 ML IV SCH ×4 (01:49→18:42)
[2022-05-30] MEDS: PROPOFOL 100 ML IV SCH ×2 (02:16→22:02)
[2022-05-30 04:36] LABS: Basophils # (auto) 0 10 ^3/uL (0-0.2); Hemoglobin 7.9 g/dL (13.5-17.5); Lymphocytes # (auto) 0.7 10 ^3/uL (0.4-5.4); Monocytes # (auto) 0.7 10 ^3/uL (0-1.3); Nucleated Red Blood Cells % 0.2 %
[2022-05-30 04:41] LABS: Basophils % (auto) 0.5 % (0.0-2.0); Eosinophils # (auto) 0 10 ^3/uL (0-0.8); Eosinophils % (auto) 0.9 % (0.0-7.0); Hematocrit 23.6 % (41.0-53.0); Mean Corpuscular Hemoglobin 29.5 pg (28.0-32.0); Mean Corpuscular Hgb Conc. 33.5 g/dL (32.0-36.0); Mean Corpuscular Volume 87.8 fL (80.0-100.0); Monocytes % (auto) 14.3 % (0.0-12.0); Neutrophils # (auto) 3.4 10 ^3/uL (1.6-8.6); Neutrophils % (auto) 69.3 % (37.0-80.0); Red Blood Cells 2.69 10^6/uL (4.5-5.90); Red Cell Distribution Width 17.8 % (11.8-14.3); White Blood Cell 4.9 10^3/uL (4.4-10.8)
[2022-05-30 04:46] LABS: Albumin 1.4 g/dL (3.4-5.0); BUN/Creatinine Ratio 63.6; Calcium 7.2 mg/dL (8.5-10.1); Magnesium 2.1 mg/dL (1.6-2.6)
[2022-05-30 04:50] LABS: Phosphorus 2.4 mg/dL (2.5-4.90); Total Protein 6.2 g/dL (6.4-8.2)
[2022-05-30] MEDS: POTASSIUM CHL 20MEQ/100ML 100 ML IV SCH ×2 (06:21→08:10)
[2022-05-30] MEDS: BUMETANIDE 2.5mg/10ml (0.25 mg/ml) INJ IV SCH ×2 (06:22→18:32)
[2022-05-30] MEDS: INSULIN LANTUS (GLARGINE) 1 /0.01ml (100units/ml) SC SCH (06:25)
[2022-05-30] MEDS: NOREPINEPHRINE BITARTRATE 32 MG in SODIUM CHL 0.9% 218 ML IV SCH (07:45)
[2022-05-30] MEDS: PHENYLEPHRINE INJ 80 MG in SODIUM CHL 0.9% 242 ML IV SCH (09:41)
[2022-05-30] MEDS: PANTOPRAZOLE 40 MG/10 ML VIAL INJ IV SCH ×2 (09:41→21:58)
[2022-05-30] MEDS: SODIUM CHLOR 0.9% PF (SALINE LOCK) 10ML VIAL/SYR IV SCH ×2 (09:42→21:58)
[2022-05-30] MEDS: FLUCONAZOLE 200MG/100ML 100 ML IV SCH (11:21)
[2022-05-30] MEDS: ACETAMINOPHEN 650 MG RECT SUPP PR PRN (12:19)
[2022-05-30] MEDS: hydrALAZINE HCL 20 MG/ML VL IV PRN (13:21)
[2022-05-30] MEDS: DOXYCYCLINE 100MG/250ML 250 ML IV SCH ×2 (16:36→22:02)
[2022-05-30] MEDS: fentaNYL Drip 2500mCg/250mlNS 250 ML IV SCH (16:42)
[2022-05-30] MEDS: MIDAZOLAM DRIP 50 mg/50mL 50 ML IV SCH (18:00)
[2022-05-30] MEDS ORDERED: TPN PER PHARMACY IV NR ×12 (20:00)
[2022-05-31] VITALS (85 sets, daily range): BP systolic 87–177; BP diastolic 41–83
[2022-05-31] MEDS: ALBUTEROL SULF 2.5 MG/0.5ML(0.5%) NEB SOLN NEB PRN ×4 (00:17→18:55)
[2022-05-31] MEDS: IPRATROPIUM BROM 0.5 MG/2.5ML INH SOL NEB PRN ×4 (00:17→18:55)
[2022-05-31] MEDS: ACETYLCYSTEINE 10 %(100MG/ML) SOL 4ML NEB SCH ×4 (00:18→18:55)
[2022-05-31] MEDS: PIPERACILLIN-TAZOB 3.375GM 100 ML IV SCH ×4 (00:43→17:50)
[2022-05-31] MEDS: InsuLIN REG 1unit/0.01ml Soln (100units/ml) SC SCH ×4 (00:49→17:56)
[2022-05-31 04:47] LABS: Basophils # (auto) 0 10 ^3/uL (0-0.2); Basophils % (auto) 0.3 % (0.0-2.0); Eosinophils # (auto) 0.1 10 ^3/uL (0-0.8); Hemoglobin 7.3 g/dL (13.5-17.5); Lymphocytes # (auto) 0.6 10 ^3/uL (0.4-5.4); Monocytes # (auto) 0.6 10 ^3/uL (0-1.3)
[2022-05-31 04:50] LABS: Eosinophils % (auto) 2.5 % (0.0-7.0); Hematocrit 22.7 % (41.0-53.0); Mean Corpuscular Hemoglobin 31.3 pg (28.0-32.0); Mean Corpuscular Hgb Conc. 32.3 g/dL (32.0-36.0); Mean Corpuscular Volume 96.9 fL (80.0-100.0); Monocytes % (auto) 11.2 % (0.0-12.0); Red Blood Cells 2.34 10^6/uL (4.5-5.90); Red Cell Distribution Width 18.1 % (11.8-14.3); White Blood Cell 5.3 10^3/uL (4.4-10.8)
[2022-05-31 04:58] LABS: INR 1.37 (0.9-1.15); Partial Thromboplastin Time 41.6 sec (24.6-33.4)
[2022-05-31 05:05] LABS: Urine Bacteria FEW /hpf (None Seen); Urine Blood Negative /uL (Negative); Urine Hyaline Cast FEW /lpf (0 - 2); Urine Mucus FEW (None Seen); Urine Specific Gravity 1.028 (1.001-1.035); Urine WBC 89 /hpf (0 - 3)
[2022-05-31] MEDS: ACCU-CHEK COMFORT CURVE STRIP VI SCH ×4 (06:10→17:50)
[2022-05-31] MEDS: METOPROLOL TARTRATE 1MG/1ML-5ML VIAL IV SCH ×4 (06:10→17:49)
[2022-05-31] MEDS: BUMETANIDE 2.5mg/10ml (0.25 mg/ml) INJ IV SCH ×2 (06:10→17:49)
[2022-05-31] MEDS: INSULIN LANTUS (GLARGINE) 1 /0.01ml (100units/ml) SC SCH (06:16)
[2022-05-31] MEDS: NOREPINEPHRINE BITARTRATE 32 MG in SODIUM CHL 0.9% 218 ML IV SCH (07:28)
[2022-05-31 08:00] LABS: Albumin 1.4 g/dL (3.4-5.0); BUN/Creatinine Ratio 52.5; Bilirubin, Total 1.1 mg/dL (0.2-1.0); Calcium 7.5 mg/dL (8.5-10.1); Magnesium 2.3 mg/dL (1.6-2.6); Phosphorus 3.4 mg/dL (2.5-4.90); Potassium 3.2 mmol/L (3.5-5.1); Total Protein 6.4 g/dL (6.4-8.2)
[2022-05-31] MEDS: FLUCONAZOLE 200MG/100ML 100 ML IV SCH (09:19)
[2022-05-31] MEDS: SODIUM CHLOR 0.9% PF (SALINE LOCK) 10ML VIAL/SYR IV SCH ×2 (09:19→22:15)
[2022-05-31] MEDS: POTASSIUM CHL 20MEQ/100ML 100 ML IV SCH ×2 (09:19→11:15)
[2022-05-31] MEDS: PANTOPRAZOLE 40 MG/10 ML VIAL INJ IV SCH ×2 (09:19→22:15)
[2022-05-31] MEDS: PHENYLEPHRINE INJ 80 MG in SODIUM CHL 0.9% 242 ML IV SCH (10:15)
[2022-05-31] MEDS: DOXYCYCLINE 100MG/250ML 250 ML IV SCH ×2 (10:57→23:05)
[2022-05-31] MEDS: MIDAZOLAM DRIP 50 mg/50mL 50 ML IV SCH (17:49)
[2022-05-31] MEDS: fentaNYL Drip 2500mCg/250mlNS 250 ML IV SCH (17:49)
[2022-05-31] MEDS: TPN PER PHARMACY IV NR ×11 (20:00)
[2022-05-31] MEDS: LORazepam 2MG/ML-1ML VIAL IV PRN (23:26)
[2022-05-31] MEDS: ONDANSETRON HCL 4 MG/2 ML VIAL IV PRN (23:26)
[2022-06-01] VITALS (79 sets, daily range): BP systolic 72–150; BP diastolic 36–85
[2022-06-01] MEDS: ACCU-CHEK COMFORT CURVE STRIP VI SCH ×4 (00:19→17:28)
[2022-06-01] MEDS: PIPERACILLIN-TAZOB 3.375GM 100 ML IV SCH ×3 (00:23→12:08)
[2022-06-01] MEDS: METOPROLOL TARTRATE 1MG/1ML-5ML VIAL IV SCH ×4 (00:23→18:00)
[2022-06-01] MEDS: InsuLIN REG 1unit/0.01ml Soln (100units/ml) SC SCH ×4 (00:31→17:29)
[2022-06-01] MEDS: ACETYLCYSTEINE 10 %(100MG/ML) SOL 4ML NEB SCH ×4 (00:41→22:06)
[2022-06-01 05:06] LABS: Albumin 1.5 g/dL (3.4-5.0); BUN/Creatinine Ratio 44.3; Bilirubin, Total 1.4 mg/dL (0.2-1.0); Calcium 6.8 mg/dL (8.5-10.1); Phosphorus 2.4 mg/dL (2.5-4.90); Total Protein 6.1 g/dL (6.4-8.2)
[2022-06-01 05:35] LABS: Potassium 2.8 mmol/L (3.5-5.1)
[2022-06-01] MEDS: BUMETANIDE 2.5mg/10ml (0.25 mg/ml) INJ IV SCH ×2 (06:19→17:15)
[2022-06-01] MEDS: POTASSIUM CHL 20MEQ/100ML 100 ML IV SCH ×2 (06:19→08:13)
[2022-06-01] MEDS: ALBUTEROL SULF 2.5 MG/0.5ML(0.5%) NEB SOLN NEB PRN ×3 (06:57→22:06)
[2022-06-01] MEDS: IPRATROPIUM BROM 0.5 MG/2.5ML INH SOL NEB PRN ×3 (06:57→22:06)
[2022-06-01] MEDS: INSULIN LANTUS (GLARGINE) 1 /0.01ml (100units/ml) SC SCH (07:00)
[2022-06-01] MEDS: NOREPINEPHRINE BITARTRATE 32 MG in SODIUM CHL 0.9% 218 ML IV SCH (07:45)
[2022-06-01] MEDS ORDERED: POTASSIUM PHOSPHATE 44 MEQ in D5W 5% 250 ML IV ONE ×2 (09:30→10:00)
[2022-06-01] MEDS: FLUCONAZOLE 200MG/100ML 100 ML IV SCH (10:12)
[2022-06-01] MEDS: SODIUM CHLOR 0.9% PF (SALINE LOCK) 10ML VIAL/SYR IV SCH ×2 (10:13→22:12)
[2022-06-01] MEDS: PANTOPRAZOLE 40 MG/10 ML VIAL INJ IV SCH ×2 (10:13→22:12)
[2022-06-01] MEDS: PHENYLEPHRINE INJ 80 MG in SODIUM CHL 0.9% 242 ML IV SCH (10:14)
[2022-06-01] MEDS: DOXYCYCLINE 100MG/250ML 250 ML IV SCH ×2 (10:15→23:30)
[2022-06-01] MEDS: ONDANSETRON HCL 4 MG/2 ML VIAL IV PRN ×2 (12:34→17:16)
[2022-06-01] MEDS: PROPOFOL 100 ML IV SCH ×2 (15:05→22:00)
[2022-06-01] MEDS: fentaNYL Drip 2500mCg/250mlNS 250 ML IV SCH ×2 (17:29→18:00)
[2022-06-01] MEDS: MIDAZOLAM DRIP 50 mg/50mL 50 ML IV SCH (17:29)
[2022-06-01] MEDS: TPN PER PHARMACY IV NR ×11 (19:58)
[2022-06-01] MEDS ORDERED: TPN PER PHARMACY IV NR ×13 (20:00)
[2022-06-01] MEDS: FLORASTOR (S. BOULARDII) 250 MG CAP PO SCH (22:00)
[2022-06-01] MEDS: CIPROFLOXACIN 400MG/200ML 200 ML IV SCH (22:17)
[2022-06-01] MEDS ORDERED: NOREPINEPHRINE 8 MG/250ML KIT 250 ML IV ONE (22:36)
[2022-06-02] VITALS (99 sets, daily range): BP systolic 89–140; BP diastolic 50–78
[2022-06-02] MEDS ORDERED: DexmedeTOMIDine 4 ML IV ONE ×2 (00:44→05:53)
[2022-06-02] MEDS: InsuLIN REG 1unit/0.01ml Soln (100units/ml) SC SCH ×4 (00:45→18:00)
[2022-06-02] MEDS: ACCU-CHEK COMFORT CURVE STRIP VI SCH ×4 (00:45→18:12)
[2022-06-02] MEDS: IPRATROPIUM BROM 0.5 MG/2.5ML INH SOL NEB PRN ×3 (02:40→18:12)
[2022-06-02] MEDS: ACETYLCYSTEINE 10 %(100MG/ML) SOL 4ML NEB SCH ×4 (02:40→18:12)
[2022-06-02] MEDS: ALBUTEROL SULF 2.5 MG/0.5ML(0.5%) NEB SOLN NEB PRN ×4 (02:40→18:12)
[2022-06-02] MEDS: METOPROLOL TARTRATE 1MG/1ML-5ML VIAL IV SCH ×4 (06:00→18:00)
[2022-06-02] MEDS: fentaNYL Drip 2500mCg/250mlNS 250 ML IV SCH (06:09)
[2022-06-02] MEDS: BUMETANIDE 2.5mg/10ml (0.25 mg/ml) INJ IV SCH ×2 (06:27→18:00)
[2022-06-02] MEDS: INSULIN LANTUS (GLARGINE) 1 /0.01ml (100units/ml) SC SCH (06:30)
[2022-06-02 07:01] LABS: Potassium 3.8 mmol/L (3.5-5.1)
[2022-06-02 07:10] LABS: Albumin 1.5 g/dL (3.4-5.0); BUN/Creatinine Ratio 46.7; Calcium 7.7 mg/dL (8.5-10.1); Magnesium 2.2 mg/dL (1.6-2.6); Phosphorus 2.9 mg/dL (2.5-4.90); Total Protein 6.5 g/dL (6.4-8.2)
[2022-06-02] MEDS: NOREPINEPHRINE BITARTRATE 32 MG in SODIUM CHL 0.9% 218 ML IV SCH (07:45)
[2022-06-02] MEDS: FLORASTOR (S. BOULARDII) 250 MG CAP PO SCH ×2 (10:00→22:00)
[2022-06-02] MEDS: CIPROFLOXACIN 400MG/200ML 200 ML IV SCH ×2 (10:01→22:05)
[2022-06-02] MEDS: SODIUM CHLOR 0.9% PF (SALINE LOCK) 10ML VIAL/SYR IV SCH ×2 (10:01→22:06)
[2022-06-02] MEDS: PANTOPRAZOLE 40 MG/10 ML VIAL INJ IV SCH ×2 (10:01→22:06)
[2022-06-02] MEDS: DOXYCYCLINE 100MG/250ML 250 ML IV SCH (10:01)
[2022-06-02] MEDS: PHENYLEPHRINE INJ 80 MG in SODIUM CHL 0.9% 242 ML IV SCH (10:02)
[2022-06-02] MEDS: MIDAZOLAM DRIP 50 mg/50mL 50 ML IV SCH (18:00)
[2022-06-02] MEDS ORDERED: TPN PER PHARMACY IV NR ×10 (20:00)
[2022-06-03] VITALS (93 sets, daily range): BP systolic 87–143; BP diastolic 55–110
[2022-06-03] MEDS: DOXYCYCLINE 100MG/250ML 250 ML IV SCH ×2 (00:02→11:14)
[2022-06-03] MEDS: IPRATROPIUM BROM 0.5 MG/2.5ML INH SOL NEB PRN ×4 (00:07→18:43)
[2022-06-03] MEDS: ACETYLCYSTEINE 10 %(100MG/ML) SOL 4ML NEB SCH ×4 (00:07→18:46)
[2022-06-03] MEDS: ALBUTEROL SULF 2.5 MG/0.5ML(0.5%) NEB SOLN NEB PRN ×5 (00:07→18:45)
[2022-06-03] MEDS: ACCU-CHEK COMFORT CURVE STRIP VI SCH ×5 (00:26→23:40)
[2022-06-03] MEDS: InsuLIN REG 1unit/0.01ml Soln (100units/ml) SC SCH ×4 (00:32→18:09)
[2022-06-03] MEDS: METOPROLOL TARTRATE 1MG/1ML-5ML VIAL IV SCH ×5 (00:50→23:23)
[2022-06-03] MEDS: BUMETANIDE 2.5mg/10ml (0.25 mg/ml) INJ IV SCH ×2 (05:44→18:06)
[2022-06-03 05:49] LABS: Basophils # (auto) 0 10 ^3/uL (0-0.2); Basophils % (auto) 0.3 % (0.0-2.0); Eosinophils # (auto) 0.1 10 ^3/uL (0-0.8); Eosinophils % (auto) 1.3 % (0.0-7.0); Lymphocytes # (auto) 0.6 10 ^3/uL (0.4-5.4); Mean Corpuscular Hgb Conc. 32.8 g/dL (32.0-36.0); Red Blood Cells 2.96 10^6/uL (4.5-5.90)
[2022-06-03 05:51] LABS: Hematocrit 25.1 % (41.0-53.0); Hemoglobin 8.2 g/dL (13.5-17.5); Lymphocytes % (auto) 6.9 % (10.0-50.0); Mean Corpuscular Hemoglobin 27.8 pg (28.0-32.0); Mean Corpuscular Volume 84.9 fL (80.0-100.0); Monocytes # (auto) 0.9 10 ^3/uL (0-1.3); Neutrophils # (auto) 6.9 10 ^3/uL (1.6-8.6); Neutrophils % (auto) 80.5 % (37.0-80.0); Nucleated Red Blood Cells % 0.1 %; Red Cell Distribution Width 18.7 % (11.8-14.3); White Blood Cell 8.6 10^3/uL (4.4-10.8)
[2022-06-03 06:07] LABS: Albumin 1.6 g/dL (3.4-5.0); BUN/Creatinine Ratio 52.3; Calcium 7.3 mg/dL (8.5-10.1); Magnesium 2.1 mg/dL (1.6-2.6); Phosphorus 2.3 mg/dL (2.5-4.90); Potassium 3.5 mmol/L (3.5-5.1); Total Protein 6.4 g/dL (6.4-8.2)
[2022-06-03] MEDS: INSULIN LANTUS (GLARGINE) 1 /0.01ml (100units/ml) SC SCH (07:16)
[2022-06-03] MEDS: NOREPINEPHRINE BITARTRATE 32 MG in SODIUM CHL 0.9% 218 ML IV SCH (07:45)
[2022-06-03] MEDS ORDERED: POTASSIUM PHOSPHATE 44 MEQ in D5W 5% 250 ML IV ONE (08:00)
[2022-06-03] MEDS: FLORASTOR (S. BOULARDII) 250 MG CAP PO SCH ×2 (09:18→21:38)
[2022-06-03] MEDS: SODIUM CHLOR 0.9% PF (SALINE LOCK) 10ML VIAL/SYR IV SCH ×2 (09:19→21:26)
[2022-06-03] MEDS: PANTOPRAZOLE 40 MG/10 ML VIAL INJ IV SCH ×2 (09:25→21:26)
[2022-06-03] MEDS: CIPROFLOXACIN 400MG/200ML 200 ML IV SCH ×2 (09:26→21:26)
[2022-06-03] MEDS: PHENYLEPHRINE INJ 80 MG in SODIUM CHL 0.9% 242 ML IV SCH (09:26)
[2022-06-03] MEDS ORDERED: VANCOMYCIN PER PHARMACY 0 MG IV SCH (12:30)
[2022-06-03] MEDS: MEROPENEM 2 GM in SODIUM CHL 0.9% 250 ML IV SCH ×2 (13:51→23:29)
[2022-06-03] MEDS: VANCOMYCIN 1GM/250ML 250 ML IV SCH ×2 (13:51→22:48)
[2022-06-03] MEDS: ACETAMINOPHEN 650 MG RECT SUPP PR PRN (13:52)
[2022-06-03] MEDS: PROPOFOL 100 ML IV SCH (15:45)
[2022-06-03] MEDS: fentaNYL Drip 2500mCg/250mlNS 250 ML IV SCH (18:00)
[2022-06-03] MEDS: MIDAZOLAM DRIP 50 mg/50mL 50 ML IV SCH (18:00)
[2022-06-03] MEDS ORDERED: TPN PER PHARMACY IV NR ×11 (20:00)
[2022-06-03] MEDS: LORazepam 2MG/ML-1ML VIAL IV PRN (21:04)
[2022-06-04] VITALS (51 sets, daily range): BP systolic 105–147; BP diastolic 64–95
[2022-06-04] MEDS: IPRATROPIUM BROM 0.5 MG/2.5ML INH SOL NEB PRN ×4 (00:03→19:31)
[2022-06-04] MEDS: ACETYLCYSTEINE 10 %(100MG/ML) SOL 4ML NEB SCH ×4 (00:03→19:31)
[2022-06-04] MEDS: ALBUTEROL SULF 2.5 MG/0.5ML(0.5%) NEB SOLN NEB PRN ×4 (00:03→19:31)
[2022-06-04] MEDS: InsuLIN REG 1unit/0.01ml Soln (100units/ml) SC SCH ×4 (00:29→17:46)
[2022-06-04] MEDS: BUMETANIDE 2.5mg/10ml (0.25 mg/ml) INJ IV SCH ×2 (05:51→17:38)
[2022-06-04] MEDS: ACCU-CHEK COMFORT CURVE STRIP VI SCH ×3 (05:52→17:38)
[2022-06-04] MEDS: METOPROLOL TARTRATE 1MG/1ML-5ML VIAL IV SCH ×3 (05:52→17:37)
[2022-06-04] MEDS: MEROPENEM 2 GM in SODIUM CHL 0.9% 250 ML IV SCH ×3 (06:12→22:33)
[2022-06-04] MEDS: INSULIN LANTUS (GLARGINE) 1 /0.01ml (100units/ml) SC SCH (06:44)
[2022-06-04 06:50] LABS: Basophils # (auto) 0 10 ^3/uL (0-0.2); Basophils % (auto) 0.2 % (0.0-2.0); Eosinophils # (auto) 0 10 ^3/uL (0-0.8); Eosinophils % (auto) 0.2 % (0.0-7.0); Hematocrit 28.3 % (41.0-53.0); Lymphocytes # (auto) 0.6 10 ^3/uL (0.4-5.4); Lymphocytes % (auto) 4.8 % (10.0-50.0); Mean Corpuscular Hemoglobin 29.1 pg (28.0-32.0); Mean Corpuscular Hgb Conc. 31.9 g/dL (32.0-36.0); Mean Corpuscular Volume 91.1 fL (80.0-100.0); Monocytes # (auto) 1.2 10 ^3/uL (0-1.3); Neutrophils # (auto) 10.2 10 ^3/uL (1.6-8.6); Neutrophils % (auto) 84.8 % (37.0-80.0); Red Cell Distribution Width 19.7 % (11.8-14.3); White Blood Cell 12.1 10^3/uL (4.4-10.8)
[2022-06-04] MEDS: NOREPINEPHRINE BITARTRATE 32 MG in SODIUM CHL 0.9% 218 ML IV SCH (07:45)
[2022-06-04] MEDS: FLORASTOR (S. BOULARDII) 250 MG CAP PO SCH ×2 (10:00→22:00)
[2022-06-04] MEDS: VANCOMYCIN 1GM/250ML 250 ML IV SCH ×2 (10:03→21:14)
[2022-06-04] MEDS: PANTOPRAZOLE 40 MG/10 ML VIAL INJ IV SCH ×2 (10:03→22:03)
[2022-06-04] MEDS: CIPROFLOXACIN 400MG/200ML 200 ML IV SCH (10:03)
[2022-06-04] MEDS: SODIUM CHLOR 0.9% PF (SALINE LOCK) 10ML VIAL/SYR IV SCH ×2 (10:03→22:03)
[2022-06-04] MEDS: PHENYLEPHRINE INJ 80 MG in SODIUM CHL 0.9% 242 ML IV SCH (10:04)
[2022-06-04 11:36] LABS: BUN/Creatinine Ratio 35.8; Bilirubin, Total 1.3 mg/dL (0.2-1.0); Calcium 7.6 mg/dL (8.5-10.1); Phosphorus 2.4 mg/dL (2.5-4.90); Total Protein 7.1 g/dL (6.4-8.2)
[2022-06-04 11:37] LABS: Albumin 1.7 g/dL (3.4-5.0); Magnesium 2.3 mg/dL (1.6-2.6)
[2022-06-04] MEDS ORDERED: POTASSIUM CHL 20MEQ/100ML 100 ML IV ONE (12:00)
[2022-06-04] MEDS ORDERED: POTASSIUM PHOSPHATE 44 MEQ in D5W 5% 250 ML IV ONE (14:00)
[2022-06-04] MEDS: PROPOFOL 100 ML IV SCH (15:45)
[2022-06-04] MEDS: fentaNYL Drip 2500mCg/250mlNS 250 ML IV SCH (17:28)
[2022-06-04] MEDS: MIDAZOLAM DRIP 50 mg/50mL 50 ML IV SCH (17:29)
[2022-06-04] MEDS ORDERED: TPN PER PHARMACY IV NR ×11 (20:00)
[2022-06-04] MEDS ORDERED: VANCOMYCIN 1GM/250ML 250 ML IV SCH (21:15)
[2022-06-04] MEDS: MORPHINE SULFATE INJ 2 MG/ml SYRG IV PRN (23:04)
[2022-06-05] VITALS (47 sets, daily range): BP systolic 107–136; BP diastolic 59–82
[2022-06-05] MEDS: METOPROLOL TARTRATE 1MG/1ML-5ML VIAL IV SCH ×5 (00:24→23:31)
[2022-06-05] MEDS: InsuLIN REG 1unit/0.01ml Soln (100units/ml) SC SCH ×5 (00:27→23:43)
[2022-06-05] MEDS: ACCU-CHEK COMFORT CURVE STRIP VI SCH ×5 (00:28→23:31)
[2022-06-05] MEDS: ALBUTEROL SULF 2.5 MG/0.5ML(0.5%) NEB SOLN NEB PRN ×4 (00:34→18:33)
[2022-06-05] MEDS: IPRATROPIUM BROM 0.5 MG/2.5ML INH SOL NEB PRN ×4 (00:34→18:33)
[2022-06-05] MEDS: ACETYLCYSTEINE 10 %(100MG/ML) SOL 4ML NEB SCH ×4 (00:34→18:33)
[2022-06-05 04:06] LABS: Basophils # (auto) 0 10 ^3/uL (0-0.2); Basophils % (auto) 0.3 % (0.0-2.0); Hemoglobin 8.9 g/dL (13.5-17.5); Monocytes # (auto) 1.7 10 ^3/uL (0-1.3)
[2022-06-05 04:08] LABS: Eosinophils # (auto) 0.1 10 ^3/uL (0-0.8); Eosinophils % (auto) 1.2 % (0.0-7.0); Hematocrit 27.2 % (41.0-53.0); Lymphocytes # (auto) 0.8 10 ^3/uL (0.4-5.4); Lymphocytes % (auto) 6.5 % (10.0-50.0); Mean Corpuscular Hemoglobin 27.4 pg (28.0-32.0); Mean Corpuscular Hgb Conc. 32.7 g/dL (32.0-36.0); Mean Corpuscular Volume 83.6 fL (80.0-100.0); Neutrophils # (auto) 9.5 10 ^3/uL (1.6-8.6); Red Blood Cells 3.25 10^6/uL (4.5-5.90); White Blood Cell 12.2 10^3/uL (4.4-10.8)
[2022-06-05 04:15] LABS: Albumin 1.6 g/dL (3.4-5.0); Calcium 7.4 mg/dL (8.5-10.1); Magnesium 2.2 mg/dL (1.6-2.6)
[2022-06-05 04:16] LABS: BUN/Creatinine Ratio 47.7; Phosphorus 2.9 mg/dL (2.5-4.90)
[2022-06-05 04:19] LABS: Bilirubin, Total 1.2 mg/dL (0.2-1.0); Total Protein 6.7 g/dL (6.4-8.2)
[2022-06-05] MEDS ORDERED: POTASSIUM CHL 20MEQ/100ML 100 ML IV ONE (05:00)
[2022-06-05] MEDS: VANCOMYCIN 1GM/250ML 250 ML IV SCH ×3 (05:13→21:39)
[2022-06-05] MEDS: MORPHINE SULFATE INJ 2 MG/ml SYRG IV PRN (05:40)
[2022-06-05] MEDS: BUMETANIDE 2.5mg/10ml (0.25 mg/ml) INJ IV SCH ×2 (05:46→18:48)
[2022-06-05] MEDS: MEROPENEM 2 GM in SODIUM CHL 0.9% 250 ML IV SCH ×3 (06:30→23:32)
[2022-06-05] MEDS: INSULIN LANTUS (GLARGINE) 1 /0.01ml (100units/ml) SC SCH (06:35)
[2022-06-05] MEDS: NOREPINEPHRINE BITARTRATE 32 MG in SODIUM CHL 0.9% 218 ML IV SCH (07:45)
[2022-06-05] MEDS: PANTOPRAZOLE 40 MG/10 ML VIAL INJ IV SCH ×2 (09:52→21:39)
[2022-06-05] MEDS: FLORASTOR (S. BOULARDII) 250 MG CAP PO SCH ×2 (10:00→21:49)
[2022-06-05] MEDS: SODIUM CHLOR 0.9% PF (SALINE LOCK) 10ML VIAL/SYR IV SCH ×2 (10:02→21:48)
[2022-06-05] MEDS: PHENYLEPHRINE INJ 80 MG in SODIUM CHL 0.9% 242 ML IV SCH (10:15)
[2022-06-05] MEDS ORDERED: POTASSIUM PHOSPHATE 44 MEQ in D5W 5% 250 ML IV ONE (11:00)
[2022-06-05] MEDS ORDERED: POTASSIUM CHLORIDE 60 MEQ, LIDOCAINE 1% (LOCAL ANESTH.) 6 ML in SODIUM CHL 0.9% 500 ML IV ONE (12:45)
[2022-06-05] MEDS: PROPOFOL 100 ML IV SCH (15:45)
[2022-06-05] MEDS: fentaNYL Drip 2500mCg/250mlNS 250 ML IV SCH (17:47)
[2022-06-05] MEDS: MIDAZOLAM DRIP 50 mg/50mL 50 ML IV SCH (18:00)
[2022-06-05] MEDS ORDERED: TPN PER PHARMACY IV NR ×11 (20:00)
[2022-06-06] VITALS (37 sets, daily range): BP systolic 103–130; BP diastolic 62–79
[2022-06-06] MEDS: IPRATROPIUM BROM 0.5 MG/2.5ML INH SOL NEB PRN ×4 (00:36→18:45)
[2022-06-06] MEDS: ACETYLCYSTEINE 10 %(100MG/ML) SOL 4ML NEB SCH ×4 (00:36→18:45)
[2022-06-06] MEDS: ALBUTEROL SULF 2.5 MG/0.5ML(0.5%) NEB SOLN NEB PRN ×4 (00:36→18:45)
[2022-06-06] MEDS: MORPHINE SULFATE INJ 2 MG/ml SYRG IV PRN (01:20)
[2022-06-06] MEDS: VANCOMYCIN 1GM/250ML 250 ML IV SCH ×3 (05:14→21:10)
[2022-06-06] MEDS: METOPROLOL TARTRATE 1MG/1ML-5ML VIAL IV SCH ×4 (05:19→23:57)
[2022-06-06] MEDS: BUMETANIDE 2.5mg/10ml (0.25 mg/ml) INJ IV SCH ×2 (05:21→18:44)
[2022-06-06 05:27] LABS: Basophils # (auto) 0 10 ^3/uL (0-0.2); Basophils % (auto) 0.4 % (0.0-2.0); Eosinophils # (auto) 0.1 10 ^3/uL (0-0.8); Eosinophils % (auto) 1.4 % (0.0-7.0); Hematocrit 26.9 % (41.0-53.0); Hemoglobin 8.8 g/dL (13.5-17.5); Lymphocytes # (auto) 0.5 10 ^3/uL (0.4-5.4); Lymphocytes % (auto) 4.9 % (10.0-50.0); Mean Corpuscular Hemoglobin 27.3 pg (28.0-32.0); Mean Corpuscular Hgb Conc. 32.6 g/dL (32.0-36.0); Mean Corpuscular Volume 83.7 fL (80.0-100.0); Monocytes # (auto) 1.4 10 ^3/uL (0-1.3); Monocytes % (auto) 13.7 % (0.0-12.0); Neutrophils # (auto) 7.9 10 ^3/uL (1.6-8.6); Neutrophils % (auto) 79.6 % (37.0-80.0); Nucleated Red Blood Cells % 0.1 %; Red Blood Cells 3.21 10^6/uL (4.5-5.90); Red Cell Distribution Width 19.6 % (11.8-14.3); White Blood Cell 9.9 10^3/uL (4.4-10.8)
[2022-06-06 05:33] LABS: Albumin 1.6 g/dL (3.4-5.0); BUN/Creatinine Ratio 53.7; Calcium 7.3 mg/dL (8.5-10.1); Magnesium 2.1 mg/dL (1.6-2.6); Potassium 3.6 mmol/L (3.5-5.1)
[2022-06-06] MEDS: ACCU-CHEK COMFORT CURVE STRIP VI SCH ×4 (05:33→23:57)
[2022-06-06] MEDS: InsuLIN REG 1unit/0.01ml Soln (100units/ml) SC SCH ×3 (05:36→18:00)
[2022-06-06 06:07] LABS: Bilirubin, Total 1.2 mg/dL (0.2-1.0); Phosphorus 2.8 mg/dL (2.5-4.90); Total Protein 6.2 g/dL (6.4-8.2)
[2022-06-06] MEDS: MEROPENEM 2 GM in SODIUM CHL 0.9% 250 ML IV SCH ×3 (06:43→23:57)
[2022-06-06] MEDS: INSULIN LANTUS (GLARGINE) 1 /0.01ml (100units/ml) SC SCH (06:57)
[2022-06-06] MEDS: NOREPINEPHRINE BITARTRATE 32 MG in SODIUM CHL 0.9% 218 ML IV SCH (07:45)
[2022-06-06] MEDS: FLORASTOR (S. BOULARDII) 250 MG CAP PO SCH ×2 (10:00→21:10)
[2022-06-06] MEDS: PHENYLEPHRINE INJ 80 MG in SODIUM CHL 0.9% 242 ML IV SCH (10:15)
[2022-06-06] MEDS: PANTOPRAZOLE 40 MG/10 ML VIAL INJ IV SCH ×2 (10:21→21:10)
[2022-06-06] MEDS: SODIUM CHLOR 0.9% PF (SALINE LOCK) 10ML VIAL/SYR IV SCH ×2 (10:21→21:10)
[2022-06-06] MEDS: PROPOFOL 100 ML IV SCH (15:45)
[2022-06-06] MEDS: MIDAZOLAM DRIP 50 mg/50mL 50 ML IV SCH (18:00)
[2022-06-06] MEDS: fentaNYL Drip 2500mCg/250mlNS 250 ML IV SCH (18:00)
[2022-06-06] MEDS: LORazepam 2MG/ML-1ML VIAL IV PRN (18:51)
[2022-06-06] MEDS ORDERED: TPN PER PHARMACY IV NR ×12 (20:00)
[2022-06-07] VITALS (26 sets, daily range): BP systolic 113–142; BP diastolic 66–82
[2022-06-07] MEDS: InsuLIN REG 1unit/0.01ml Soln (100units/ml) SC SCH ×4 (00:14→18:00)
[2022-06-07] MEDS: ACETYLCYSTEINE 10 %(100MG/ML) SOL 4ML NEB SCH ×4 (01:01→18:34)
[2022-06-07] MEDS: VANCOMYCIN 1GM/250ML 250 ML IV SCH ×3 (05:15→20:54)
[2022-06-07] MEDS: BUMETANIDE 2.5mg/10ml (0.25 mg/ml) INJ IV SCH ×2 (05:29→18:00)
[2022-06-07] MEDS: METOPROLOL TARTRATE 1MG/1ML-5ML VIAL IV SCH ×3 (05:30→18:00)
[2022-06-07] MEDS: ACCU-CHEK COMFORT CURVE STRIP VI SCH ×3 (05:31→18:00)
[2022-06-07] MEDS: INSULIN LANTUS (GLARGINE) 1 /0.01ml (100units/ml) SC SCH (06:46)
[2022-06-07] MEDS: MEROPENEM 2 GM in SODIUM CHL 0.9% 250 ML IV SCH ×3 (06:47→22:50)
[2022-06-07] MEDS: IPRATROPIUM BROM 0.5 MG/2.5ML INH SOL NEB PRN ×3 (06:55→18:34)
[2022-06-07] MEDS: ALBUTEROL SULF 2.5 MG/0.5ML(0.5%) NEB SOLN NEB PRN ×3 (06:55→18:34)
[2022-06-07 07:23] LABS: Potassium 3.8 mmol/L (3.5-5.1)
[2022-06-07] MEDS: NOREPINEPHRINE BITARTRATE 32 MG in SODIUM CHL 0.9% 218 ML IV SCH (07:25)
[2022-06-07 07:27] LABS: Albumin 1.8 g/dL (3.4-5.0); BUN/Creatinine Ratio 57.1; Bilirubin, Total 1.1 mg/dL (0.2-1.0); Magnesium 2.2 mg/dL (1.6-2.6); Phosphorus 2.6 mg/dL (2.5-4.90); Total Protein 6.4 g/dL (6.4-8.2)
[2022-06-07] MEDS: PANTOPRAZOLE 40 MG/10 ML VIAL INJ IV SCH ×2 (09:53→22:46)
[2022-06-07] MEDS: FLORASTOR (S. BOULARDII) 250 MG CAP PO SCH ×2 (09:53→22:00)
[2022-06-07] MEDS: SODIUM CHLOR 0.9% PF (SALINE LOCK) 10ML VIAL/SYR IV SCH ×2 (09:53→22:46)
[2022-06-07] MEDS: ACETAMINOPHEN 650 MG RECT SUPP PR PRN (16:32)
[2022-06-07] MEDS: MIDAZOLAM DRIP 50 mg/50mL 50 ML IV SCH (18:00)
[2022-06-07] MEDS ORDERED: TPN PER PHARMACY IV NR ×12 (20:00)
[2022-06-08] VITALS (24 sets, daily range): BP systolic 99–132; BP diastolic 57–81
[2022-06-08] MEDS: ALBUTEROL SULF 2.5 MG/0.5ML(0.5%) NEB SOLN NEB PRN ×5 (00:24→23:54)
[2022-06-08] MEDS: ACETYLCYSTEINE 10 %(100MG/ML) SOL 4ML NEB SCH ×2 (00:24→05:54)
[2022-06-08] MEDS: IPRATROPIUM BROM 0.5 MG/2.5ML INH SOL NEB PRN ×5 (00:24→23:54)
[2022-06-08] MEDS: InsuLIN REG 1unit/0.01ml Soln (100units/ml) SC SCH ×4 (00:30→17:42)
[2022-06-08] MEDS: ACCU-CHEK COMFORT CURVE STRIP VI SCH ×4 (00:30→17:43)
[2022-06-08] MEDS: METOPROLOL TARTRATE 1MG/1ML-5ML VIAL IV SCH ×4 (01:39→17:46)
[2022-06-08] MEDS: ACETAMINOPHEN 650 MG RECT SUPP PR PRN (02:21)
[2022-06-08 04:56] LABS: Red Cell Distribution Width 19.2 % (11.8-14.3)
[2022-06-08 04:58] LABS: Basophils # (auto) 0 10 ^3/uL (0-0.2); Basophils % (auto) 0.4 % (0.0-2.0); Eosinophils # (auto) 0.2 10 ^3/uL (0-0.8); Eosinophils % (auto) 2.8 % (0.0-7.0); Hematocrit 27.2 % (41.0-53.0); Hemoglobin 8.7 g/dL (13.5-17.5); Lymphocytes # (auto) 0.7 10 ^3/uL (0.4-5.4); Lymphocytes % (auto) 7.7 % (10.0-50.0); Mean Corpuscular Hemoglobin 27.1 pg (28.0-32.0); Mean Corpuscular Volume 84.7 fL (80.0-100.0); Monocytes # (auto) 1.1 10 ^3/uL (0-1.3); Monocytes % (auto) 12.4 % (0.0-12.0); Neutrophils # (auto) 6.6 10 ^3/uL (1.6-8.6); Neutrophils % (auto) 76.7 % (37.0-80.0); Nucleated Red Blood Cells % 0.1 %; Red Blood Cells 3.21 10^6/uL (4.5-5.90); White Blood Cell 8.6 10^3/uL (4.4-10.8)
[2022-06-08] MEDS: VANCOMYCIN 1GM/250ML 250 ML IV SCH ×3 (05:15→21:05)
[2022-06-08 05:16] LABS: Albumin 1.7 g/dL (3.4-5.0); Calcium 7.2 mg/dL (8.5-10.1); Magnesium 2.4 mg/dL (1.6-2.6)
[2022-06-08 05:18] LABS: BUN/Creatinine Ratio 56.4
[2022-06-08 05:21] LABS: Bilirubin, Total 1.1 mg/dL (0.2-1.0); Phosphorus 2.4 mg/dL (2.5-4.90); Total Protein 6.5 g/dL (6.4-8.2)
[2022-06-08] MEDS: BUMETANIDE 2.5mg/10ml (0.25 mg/ml) INJ IV SCH ×2 (05:24→17:45)
[2022-06-08] MEDS: MEROPENEM 2 GM in SODIUM CHL 0.9% 250 ML IV SCH ×3 (06:00→21:59)
[2022-06-08] MEDS: NOREPINEPHRINE BITARTRATE 32 MG in SODIUM CHL 0.9% 218 ML IV SCH (07:45)
[2022-06-08] MEDS ORDERED: SODIUM PHOSP 40 MEQ in D5W 5% 250 ML IV ONE (09:30)
[2022-06-08] MEDS: FLORASTOR (S. BOULARDII) 250 MG CAP PO SCH ×2 (10:00→22:00)
[2022-06-08] MEDS: PANTOPRAZOLE 40 MG/10 ML VIAL INJ IV SCH ×2 (10:36→21:58)
[2022-06-08] MEDS: SODIUM CHLOR 0.9% PF (SALINE LOCK) 10ML VIAL/SYR IV SCH ×2 (10:37→22:59)
[2022-06-08] MEDS: MIDAZOLAM DRIP 50 mg/50mL 50 ML IV SCH (16:50)
[2022-06-08] MEDS ORDERED: TPN PER PHARMACY IV NR ×11 (20:00)
[2022-06-09] VITALS (23 sets, daily range): BP systolic 101–127; BP diastolic 59–78
[2022-06-09] MEDS: InsuLIN REG 1unit/0.01ml Soln (100units/ml) SC SCH ×5 (00:12→23:41)
[2022-06-09] MEDS: ACCU-CHEK COMFORT CURVE STRIP VI SCH ×5 (00:12→23:41)
[2022-06-09] MEDS: METOPROLOL TARTRATE 1MG/1ML-5ML VIAL IV SCH ×5 (00:27→23:39)
[2022-06-09] MEDS: VANCOMYCIN 1GM/250ML 250 ML IV SCH ×3 (05:14→21:26)
[2022-06-09 05:59] LABS: Albumin 1.7 g/dL (3.4-5.0); BUN/Creatinine Ratio 57.5; Calcium 7.1 mg/dL (8.5-10.1); Magnesium 2.3 mg/dL (1.6-2.6); Potassium 3.8 mmol/L (3.5-5.1)
[2022-06-09 06:02] LABS: Phosphorus 2.8 mg/dL (2.5-4.90); Total Protein 6.3 g/dL (6.4-8.2)
[2022-06-09] MEDS: BUMETANIDE 2.5mg/10ml (0.25 mg/ml) INJ IV SCH ×2 (06:20→17:13)
[2022-06-09] MEDS: MEROPENEM 2 GM in SODIUM CHL 0.9% 250 ML IV SCH ×3 (06:21→21:49)
[2022-06-09] MEDS: FLORASTOR (S. BOULARDII) 250 MG CAP PO SCH ×2 (10:00→21:50)
[2022-06-09] MEDS: SODIUM CHLOR 0.9% PF (SALINE LOCK) 10ML VIAL/SYR IV SCH ×2 (10:02→21:50)
[2022-06-09] MEDS: PANTOPRAZOLE 40 MG/10 ML VIAL INJ IV SCH ×2 (10:02→21:49)
[2022-06-09 15:00] LABS: INR 1.29 (0.9-1.15); Partial Thromboplastin Time 39.9 sec (24.6-33.4)
[2022-06-09] MEDS: MIDAZOLAM DRIP 50 mg/50mL 50 ML IV SCH (18:00)
[2022-06-09] MEDS ORDERED: TPN PER PHARMACY IV NR ×11 (20:00)
[2022-06-10] VITALS (22 sets, daily range): BP systolic 96–122; BP diastolic 57–75
[2022-06-10] MEDS: VANCOMYCIN 1GM/250ML 250 ML IV SCH ×3 (04:33→20:56)
[2022-06-10 05:49] LABS: Albumin 1.7 g/dL (3.4-5.0); Calcium 7.2 mg/dL (8.5-10.1); Magnesium 2.1 mg/dL (1.6-2.6); Potassium 3.9 mmol/L (3.5-5.1)
[2022-06-10] MEDS: METOPROLOL TARTRATE 1MG/1ML-5ML VIAL IV SCH ×3 (05:51→17:25)
[2022-06-10] MEDS: BUMETANIDE 2.5mg/10ml (0.25 mg/ml) INJ IV SCH (05:51)
[2022-06-10] MEDS: MEROPENEM 2 GM in SODIUM CHL 0.9% 250 ML IV SCH ×3 (05:51→22:28)
[2022-06-10 05:54] LABS: BUN/Creatinine Ratio 66.7; Phosphorus 2.3 mg/dL (2.5-4.90); Total Protein 6.1 g/dL (6.4-8.2)
[2022-06-10] MEDS: InsuLIN REG 1unit/0.01ml Soln (100units/ml) SC SCH ×3 (06:14→16:56)
[2022-06-10] MEDS: ACCU-CHEK COMFORT CURVE STRIP VI SCH ×3 (06:16→16:56)
[2022-06-10] MEDS ORDERED: SODIUM PHOSP 40 MEQ in D5W 5% 250 ML IV ONE (08:30)
[2022-06-10] MEDS: SODIUM CHLOR 0.9% PF (SALINE LOCK) 10ML VIAL/SYR IV SCH ×2 (08:34→20:56)
[2022-06-10] MEDS: FLORASTOR (S. BOULARDII) 250 MG CAP PO SCH ×2 (08:34→20:52)
[2022-06-10] MEDS: PANTOPRAZOLE 40 MG/10 ML VIAL INJ IV SCH ×2 (08:35→20:56)
[2022-06-10] MEDS ORDERED: SODIUM PHOSPHATES 24 MEQ in SODIUM CHL 0.9% 100 ML IV ONE (09:00)
[2022-06-10] MEDS: MIDAZOLAM DRIP 50 mg/50mL 50 ML IV SCH (13:36)
[2022-06-10] MEDS: BUMETANIDE 1mg/4ml VIAL (0.25mg/ml) IV SCH (18:12)
[2022-06-10] MEDS ORDERED: TPN PER PHARMACY IV NR ×11 (20:00)
[2022-06-11] VITALS (18 sets, daily range): BP systolic 93–118; BP diastolic 58–73
[2022-06-11] MEDS: InsuLIN REG 1unit/0.01ml Soln (100units/ml) SC SCH ×4 (01:00→17:25)
[2022-06-11] MEDS: METOPROLOL TARTRATE 1MG/1ML-5ML VIAL IV SCH ×4 (01:00→17:25)
[2022-06-11] MEDS: ACCU-CHEK COMFORT CURVE STRIP VI SCH ×4 (01:00→17:25)
[2022-06-11] MEDS: BUMETANIDE 1mg/4ml VIAL (0.25mg/ml) IV SCH ×2 (05:50→17:36)
[2022-06-11] MEDS: VANCOMYCIN 1GM/250ML 250 ML IV SCH ×2 (05:50→13:00)
[2022-06-11] MEDS: MEROPENEM 2 GM in SODIUM CHL 0.9% 250 ML IV SCH ×2 (06:17→14:00)
[2022-06-11 06:24] LABS: Basophils # (auto) 0 10 ^3/uL (0-0.2); Eosinophils # (auto) 0.2 10 ^3/uL (0-0.8); Eosinophils % (auto) 3.3 % (0.0-7.0); Hemoglobin 9.4 g/dL (13.5-17.5); Lymphocytes # (auto) 0.9 10 ^3/uL (0.4-5.4); Mean Corpuscular Hemoglobin 26.9 pg (28.0-32.0); Nucleated Red Blood Cells % 0.1 %
[2022-06-11 06:26] LABS: Basophils % (auto) 0.5 % (0.0-2.0); Lymphocytes % (auto) 14.1 % (10.0-50.0); Mean Corpuscular Hgb Conc. 32.4 g/dL (32.0-36.0); Mean Corpuscular Volume 83.1 fL (80.0-100.0); Monocytes # (auto) 0.9 10 ^3/uL (0-1.3); Monocytes % (auto) 14.3 % (0.0-12.0); Neutrophils # (auto) 4.4 10 ^3/uL (1.6-8.6); Neutrophils % (auto) 67.8 % (37.0-80.0); Red Blood Cells 3.49 10^6/uL (4.5-5.90); Red Cell Distribution Width 19.1 % (11.8-14.3); White Blood Cell 6.4 10^3/uL (4.4-10.8)
[2022-06-11 06:36] LABS: Potassium 3.7 mmol/L (3.5-5.1)
[2022-06-11 06:40] LABS: Albumin 1.7 g/dL (3.4-5.0); BUN/Creatinine Ratio 52.4; Calcium 6.9 mg/dL (8.5-10.1); Magnesium 2.2 mg/dL (1.6-2.6)
[2022-06-11 06:43] LABS: Bilirubin, Total 0.9 mg/dL (0.2-1.0); Phosphorus 2.3 mg/dL (2.5-4.90); Total Protein 6.2 g/dL (6.4-8.2)
[2022-06-11] MEDS: FLORASTOR (S. BOULARDII) 250 MG CAP PO SCH (08:13)
[2022-06-11] MEDS: SODIUM CHLOR 0.9% PF (SALINE LOCK) 10ML VIAL/SYR IV SCH (08:13)
[2022-06-11] MEDS: PANTOPRAZOLE 40 MG/10 ML VIAL INJ IV SCH (08:25)
[2022-06-11] MEDS ORDERED: POTASSIUM PHOSPHATE 44 MEQ in D5W 5% 250 ML IV ONE (10:00)
[2022-06-11] MEDS ORDERED: KETOROLAC TROMETH 30 MG/ML 1ML VIAL IV PRN (10:15)
[2022-06-11] MEDS: MIDAZOLAM DRIP 50 mg/50mL 50 ML IV SCH (17:25)
[2022-06-11] MEDS ORDERED: TPN PER PHARMACY IV NR ×12 (20:00)
== END 2022-06-11 21:40 | disposition short-term general hospital (02) | DRG 4 ==
LOC: ER 00:32 → EDBD 00:32 → TELE 10:11 → ICU WEST 19:30 → DOU IN ICU 06-05 16:24
PROVIDERS: ADMIT Hospitalist; ATTEND Internal Medicine Pulmonary Disease
PROC: 5A1955Z Respiratory Ventilation, Greater than 96 Consecutive Hours (ICD-10-PCS; 2022-05-05)
PROC: 06L38CZ Occlusion of Esophageal Vein with Extraluminal Device, Via Natural or Artificial Opening Endoscopic (ICD-10-PCS; 2022-05-05)
PROC: 30233N1 Transfusion of Nonautologous Red Blood Cells into Peripheral Vein, Percutaneous Approach (ICD-10-PCS; 2022-05-05)
PROC: 06HM33Z Insertion of Infusion Device into Right Femoral Vein, Percutaneous Approach (ICD-10-PCS; 2022-05-05)
PROC: 0BH17EZ Insertion of Endotracheal Airway into Trachea, Via Natural or Artificial Opening (ICD-10-PCS; 2022-05-05)
PROC: 0W9G3ZZ Drainage of Peritoneal Cavity, Percutaneous Approach (ICD-10-PCS; 2022-05-15)
PROC: 5A1955Z Respiratory Ventilation, Greater than 96 Consecutive Hours (ICD-10-PCS; 2022-05-16)
PROC: 0BH17EZ Insertion of Endotracheal Airway into Trachea, Via Natural or Artificial Opening (ICD-10-PCS; 2022-05-16)
PROC: 05HB33Z Insertion of Infusion Device into Right Basilic Vein, Percutaneous Approach (ICD-10-PCS; 2022-05-17)
PROC: B54MZZA Ultrasonography of Right Upper Extremity Veins, Guidance (ICD-10-PCS; 2022-05-17)
PROC: 0B110F4 Bypass Trachea to Cutaneous with Tracheostomy Device, Open Approach (ICD-10-PCS; principal; 2022-05-27 07:50)
PROC: 0W9G3ZZ Drainage of Peritoneal Cavity, Percutaneous Approach (ICD-10-PCS; 2022-06-03)
PROC: 5A1935Z Respiratory Ventilation, Less than 24 Consecutive Hours (ICD-10-PCS; 2022-06-03)
PROC: 5A1935Z Respiratory Ventilation, Less than 24 Consecutive Hours (ICD-10-PCS; 2022-06-04)
PROC: 5A1935Z Respiratory Ventilation, Less than 24 Consecutive Hours (ICD-10-PCS; 2022-06-06)
PROC: 5A1935Z Respiratory Ventilation, Less than 24 Consecutive Hours (ICD-10-PCS; 2022-06-07)
PROC: 0W9G3ZZ Drainage of Peritoneal Cavity, Percutaneous Approach (ICD-10-PCS; 2022-06-10)
DX: A41.9 Sepsis, unspecified organism (principal); I85.01 Esophageal varices with bleeding; J96.01 Acute respiratory failure with hypoxia; E43 Unspecified severe protein-calorie malnutrition; D62 Acute posthemorrhagic anemia; K56.7 Ileus, unspecified; K76.6 Portal hypertension; K52.9 Noninfective gastroenteritis and colitis, unspecified; K31.9 Disease of stomach and duodenum, unspecified; K70.31 Alcoholic cirrhosis of liver with ascites; Z20.822 Contact with and (suspected) exposure to COVID-19; F10.10 Alcohol abuse, uncomplicated; D63.1 Anemia in chronic kidney disease; E11.22 Type 2 diabetes mellitus with diabetic chronic kidney disease; E11.65 Type 2 diabetes mellitus with hyperglycemia; E87.6 Hypokalemia; N18.9 Chronic kidney disease, unspecified; D69.6 Thrombocytopenia, unspecified; Z68.29 Body mass index [BMI] 29.0-29.9, adult
CPT/HCPCS: 36415; 36430; 36569; 36600; 70450; 71045; 71250; 74018; 74176; 76705; 76942; 80048; 80053; 80202; 80307; 81001; 82043; 82140; 82570; 82805; 82962; 83036; 83690; 83735; 83986; 84100; 84132; 84443; 84478; 84484; 84560; 85007; 85014; 85018; 85025; 85027; 85610; 85730; 86704; 86706; 86708; 86803; 86850; 86900; 86901; 86920; 87040; 87045; 87070; 87076; 87077; 87081; 87086; 87088; 87186; 87205; 87340; 87426; 87427; 87493; 87804; 89051; 93005; 93306; 93971; 94002; 94003; 94640; 94660; 96365; 96368; 96375; 96379; 97110; 97116; 97163; 97530; A4605; C9113; G0378; J0330; J0696; J1100; J1450; J1815; J1885; J2001; J2250; J2405; J2543; J2704; J3480; J3490; J7060; J7131

== ENCOUNTER 2025-03-21 00:42 | Emergency (ER) | payer BC ==
[~2025-03-21] VITALS: Ht 172.7 cm; Wt 72.7 kg
[2025-03-21 01:22] LABS: Hematocrit 40.3 % (41.0-53.0); Hemoglobin 14.2 g/dL (13.5-17.5); Mean Corpuscular Hemoglobin 28.9 pg (28.0-32.0); Mean Corpuscular Volume 82.0 fL (80.0-100.0); Nucleated Red Blood Cells % 0.1 %
[2025-03-21 01:25] VITALS: BP 151/81; RESP 15; TEMP 97.9; O2SAT 99
[2025-03-21 01:39] LABS: Alanine Aminotransferase 18 U/L (7-40); Albumin 3.5 g/dL (3.2-4.8); Alkaline Phosphatase 104 U/L (46-116); Anion Gap 8 (5-15); BUN/Creatinine Ratio 9.7 (10.0-20.0); Carbon Dioxide 24 mmol/L (20-31); Potassium 3.7 mmol/L (3.5-5.1); Sodium 140 mmol/L (136-145); Total Protein 7.6 g/dL (5.7-8.2)
[2025-03-21 01:44] LABS: Bilirubin, Total 1.4 mg/dL (0.2-1.0); Blood Urea Nitrogen 9 mg/dL (9-23); Calcium 8.4 mg/dL (8.7-10.4); Chloride 108 mmol/L (98-107); Glucose 109 mg/dL (74-106)
--- NOTE | 2025-03-21 01:45 | DVH ---
CHEST RADIOGRAPH INDICATION: CHEST PAIN TECHNIQUE: Single frontal view of the chest was obtained COMPARISON: XY CHEST PORTABLE on DOS: 06/10/22, XY CHEST PORTABLE on DOS: 06/03/22, XY CHEST PORTABLE on DOS: 05/31/22, XY CHEST PORTABLE on DOS: 05/27/22, XY CHEST XRAY 1 VIEW on DOS: 05/25/22 FINDINGS: Lines and Tubes: None Lungs: Clear Pleura: No effusion. No pneumothorax. Cardiomediastinal contours: Unremarkable Bones: Unremarkable IMPRESSION: 1. No acute disease.
[2025-03-21] MEDS: ACCU-CHEK COMFORT CURVE STRIP VI STA (03:26)
[2025-03-21] MEDS ORDERED: DEXTROSE (50%) 50ML SYRG IV PRN ×2 (03:30)
--- NOTE | 2025-03-21 05:00 | ED.PDOC ---
History of Present Illness HPI Comments 64-year-old male is brought in by ambulance for chief complaint of hypoglycemia. Per EMS personnel report, patient had a hypoglycemic episode after taking excessive amounts of his insulin at 6:00 p.m., yesterday. Patient reports on taking 5 units of sudden insulin. He takes Lantus and Reglan. Patient also reported on having chest pain, earlier. Pain has since subsided after being given 324 mg of aspirin and Zofran by EMS personnel prior to ED arrival. Patient denies any further pertinent history and reports on feeling better. REVIEW OF SYSTEMS: General: No fever, no chills, or fatigue HEENT: No sore throat, no earache, no congestion, no neck pain. Cardiac: Chest pain. No palpitations. Lungs: No shortness of breath, no cough. GI: No nausea, no vomiting, no diarrhea, no constipation, no abdominal pain : No dysuria, frequency, or urgency. No hematuria. Musculoskeletal: No joint pain , no joint swelling, no extremity edema. Endocrine: Hyperglycemia Skin: No rash, no itching. Neuro: No headache, no dizziness, no weakness (And as stated in HPI) PHYSICAL EXAM: General: Awake, alert and oriented. No acute distress. Skin: Skin in warm, dry and intact. Appropriate color for ethnicity. HEENT: The head is normocephalic and atraumatic. Conjunctivae are clear without exudates or hemorrhage. Sclera is non-icteric. Eyelids are normal in appearance without swelling or lesions. Oral mucosa is pink and moist Neck: The neck is supple with normal range of motion. No JVD. Cardiac: Heart rate and rhythm are normal. No murmurs, gallops, or rubs are auscultated. Respiratory: No signs of respiratory distress. Lung sounds are clear in all lobes bilaterally without rales, rhonchi, or wheezes. Abdominal: Abdomen is soft, non-tender without distention, guarding or rigidity. Bowel sounds are present and normoactive in all four quadrants. Extremities: Lower extremities without edema. Neurological: The patient is awake, alert and oriented to person, place, and time with normal speech. Speech is clear. There is no facial asymmetry. Psychiatric: Appropriate mood and affect. Good judgement and insight. Chief Complaint: Chest Pain Time Seen by MD: 01:49 Reviewed Notes: Nurses Notes, Cashier Clerk Notes, Medications, Allergies Allergies: Coded Allergies: NO KNOWN ALLERGIES (Unverified , 05/05/22) Home Meds No Active Prescriptions or Reported Meds Information Source: Patient, Emergency Med Personnel Mode of Arrival: EMS Severity: Moderate Timing: Hours Duration: Since onset Prehospital treatment: 12 Lead EKG, Accucheck, ASA, Bleacher Operator Past Medical History PAST MEDICAL HISTORY: DM, Liver Surgical History: Denies all surgeries Family History Family History: Reviewed,noncontributory to illness Social History Smoker: Non-Smoker Alcohol: Occasionally Drugs: Denies Drug Use Lives In: Home Was a procedure done? Was a procedure done?: No EKG EKG : Pulse Rate (adult): 90 [place]: Normal Cardiac Rhythm: NSR Block: None Hypertrophy: None ST: Normal Differential Dx Considerations may include: Differential diagnoses considered include acute ischemic coronary syndrome, aortic dissection, cardiac tamponade, mediastinitis, pulmonary embolus, pneumothorax, tension pneumothorax, esophageal rupture, coronary artery vasospasm, myocarditis, pericarditis, pneumonia, pulmonary edema, esophageal tear, pancreatitis, aortic stenosis, dilated cardiomyopathy, hypertrophic cardiomyopathy, mitral valve prolapse, malignancy, pleuritis, pneumomediastinum, primary pulmonary hypertension, cholecystitis, esophageal spasm, esophagus, gas tritis, GERD, peptic ulcer disease, costochondritis, fibromyalgia, rib fracture, herpes zoster, radicular syndromes, thoracic outlet syndrome, somatization. X-Ray, Labs, Meds, VS Vital Signs Date Time Temp Pulse Resp B/P (MAP) Pulse Ox O2 Delivery O2 Flow Rate FiO2 03/21/25 01:25 99 Room Air* 0 21 03/21/25 01:25 97.9 87 15 151/81 (104) 99 97.9 03/21/25 00:50 90 03/21/25 00:45 98.7 91 16 161/79 96 98.7 Lab Test 03/21/25 04:56 03/21/25 03:59 03/21/25 02:14 03/21/25 01:10 Range/Units POC Glucose 129 H 94 70-106 mg/dl Troponin I High Sensitivity 4 4 4 </=54 ng/L White Blood Count 6.2 4.4-10.8 10^3/uL Red Blood Count 4.91 4.5-5.90 10^6/uL Hemoglobin 14.2 13.5-17.5 g/dL Hematocrit 40.3 L 41.0-53.0 % Mean Corpuscular Volume 82.0 80.0-100.0 fL Mean Corpuscular Hemoglobin 28.9 28.0-32.0 pg Mean Corpuscular Hemoglobin Concent 35.2 32.0-36.0 g/dL Red Cell Distribution Width 16.9 H 11.8-14.3 % Platelet Count 147 140-450 10^3/uL Mean Platelet Volume 7.7 6.9-10.8 fL Neutrophils (%) (Auto) 71.3 37.0-80.0 % Lymphocytes (%) (Auto) 13.5 10.0-50.0 % Monocytes (%) (Auto) 10.8 0.0-12.0 % Eosinophils (%) (Auto) 3.8 0.0-7.0 % Basophils (%) (Auto) 0.6 0.0-2.0 % Neutrophils # (Auto) 4.4 1.6-8.6 10 ^3/uL Lymphocytes # (Auto) 0.8 0.4-5.4 10 ^3/uL Monocytes # (Auto) 0.7 0-1.3 10 ^3/uL Eosinophils # (Auto) 0.2 0-0.8 10 ^3/uL Basophils # (Auto) 0 0-0.2 10 ^3/uL Nucleated Red Blood Cells 0.1 % Sodium Level 140 136-145 mmol/L Potassium Level 3.7 3.5-5.1 mmol/L Chloride Level 108 H 98-107 mmol/L Carbon Dioxide Level 24 20-31 mmol/L Anion Gap 8 5-15 Blood Urea Nitrogen 9 9-23 mg/dL Creatinine 0.93 0.700-1.30 mg/dL Glomerular Filtration Rate Calc 92 >90 mL/min BUN/Creatinine Ratio 9.7 L 10.0-20.0 Serum Glucose 109 H 74-106 mg/dL Calcium Level 8.4 L 8.7-10.4 mg/dL Total Bilirubin 1.4 H 0.2-1.0 mg/dL Aspartate Amino Transferase (AST) 44 H 13-40 U/L Alanine Aminotransferase (ALT) 18 7-40 U/L Alkaline Phosphatase 104 46-116 U/L Total Protein 7.6 5.7-8.2 g/dL Albumin 3.5 3.2-4.8 g/dL Test 03/21/25 01:09 Range/Units POC Glucose 120 H 70-106 mg/dl Current Medications Medications (Trade) Dose Ordered Sig/Samantha Route Start Time Stop Time Status Last Admin Diagnostic Test (Pha) (Accu-Chek Comfort Curve T) 1 strip ONCE STAT 03/21/25 03:26 03/21/25 03:29 DC 03/21/25 03:26 [place] [id number] Ph: [phone] DIAGNOSTIC IMAGING Diagnostic Imaging Report : [id number] Signed PATIENT: MALIA BENITEZ ACCT: [id number] UNIT: [id number] : 1960 LOC: ER ROOM / BED: / AGE / SEX: 64 / M ADM STATUS: REG ER SERVICE 1 ORDERING PHYSICIAN: NADEEM RECIO MD PROCEDURE(s): CXRP - CHEST PORTABLE REASON: CHEST PAIN ORDER NUMBER(s): [id number], ACCESSION NUMBER(s): [id number] CHEST RADIOGRAPH INDICATION: CHEST PAIN TECHNIQUE: Single frontal view of the chest was obtained COMPARISON: XY CHEST PORTABLE on DOS: 06/10/22, XY CHEST PORTABLE on DOS: 06/03/22, XY CHEST PORTABLE on DOS: 05/31/22, XY CHEST PORTABLE on DOS: 05/27/22, XY CHEST XRAY 1 VIEW on DOS: 05/25/22 FINDINGS: Lines and Tubes: None Lungs: Clear Pleura: No effusion. No pneumothorax. Cardiomediastinal contours: Unremarkable Bones: Unremarkable IMPRESSION: 1. No acute disease. ATED BY: KEENAN BARKER MD DICTATED DATE/TIME: 03/21/25141 SIGNED BY: KEENAN BARKER MD SIGNED DATE/TIME: 03/21/25141 CC: Time of 1ST Reevaluation: 04:57 Reevaluation 1ST: Unchanged Patient Education/Counseling: Treatment, Need For Follow Up Family Education/Counseling: No Family Present SEPSIS Sepsis Screen Date sepsis recognized/suspect: Mar 21, 2025 Time Sepsis recognized/suspect: 0158 Recent Procedure: No On Antibiotic Therapy: No Respiratory Rate >20: No Heart Rate >90: No Temp<36 C (96.8 F) or >38.3 C: No SBP <90 or MAP <65 mmHG: No New Acute Mental Status Change: No Is the patient on CPAP, BIPAP,: No Physician Orders Chest Portable (03/21/25 01:02) Electrocardigram (03/21/25 01:02) Electrocardigram (03/21/25 02:02) Electrocardigram (03/21/25 04:02) Dextrose 50% Syringe (03/21/25 03:30) Dextrose 50% Syringe (03/21/25 03:30) Glucose Blood (Accu-Chek Comfort Curve T (03/21/25 21:15) Vital Signs Date Time Temp Pulse Resp B/P (MAP) Pulse Ox O2 Delivery O2 Flow Rate FiO2 03/21/25 01:25 99 Room Air* 0 21 03/21/25 01:25 97.9 87 15 151/81 (104) 99 97.9 03/21/25 00:50 90 03/21/25 00:45 98.7 91 16 161/79 96 98.7 Laboratory Tests Test 03/21/25 01:10 White Blood Count 6.2 10^3/uL (4.4-10.8) Medications Medications Dose Ordered Sig/Samantha Route Start Time Stop Time Status Last Admin Dose Admin Diagnostic Test (Pha) 1 strip ONCE STAT 03/21/25 03:26 03/21/25 03:29 DC 03/21/25 03:26 Departure 1 Departure Time of Disposition: 04:59 Impression: Primary Impression: Hypoglycemia Additional Impression: Chest pain Additional Instructions: ED DISCHARGE INSTRUCTIONS Instructions: Please read all instructions provided in this packet carefully. Although you have been discharged from the Emergency Department, this does not mean that you have a "clean bill of health". No definitive diagnosis for your symptoms has been made today. It is possible that you are in the process of developing a serious illness. This is why you must return to the ED without fail if any new or worsening symptoms (especially if your symptoms include chest pain, trouble breathing, abdominal pain, fever, headache, confusion, trouble seeing, or trouble walking) It is also very important that you see a primary care provider (PCP) within the next 3 days to follow up. If you are unable to get an appointment, return to the ED for re-evaluation. Hypoglycemia: Care Instructions Hypoglycemia means that your blood sugar is low and your body isnt getting e nough fuel. Low blood sugar can be caused by too much insulin or certain medicines. Some people get low blood sugar from missing a meal or exercising too hard without eating enough food. Know your signs of low blood sugar. They're different for everyone. Common early signs include nausea; hunger; and feeling nervous, irritable, or shaky. It can help to check your blood sugar levels often. Take your insulin or other medicine as prescribed. How can you care for yourself? Use the "rule of 15" to treat low blood sugar.Eat 15 grams of carbohydrate from a quick-sugar food (such as 3 or 4 glucose tablets or 1/2 cup of juice). Wait 15 minutes and check your blood sugar. Repeat if your blood sugar is still below 70 mg/dL. Eat after your blood sugar is in a safe range.A snack or meal can reduce symptoms and prevent low blood sugar from coming back. Tell friends, family, and coworkers how they can help you.Make sure that they know the symptoms of low blood sugar and how to help you get your sugar levels up. If you have glucagon, keep it with you.Make sure that your friends, family, and coworkers know how to use it. When should you call for help? Call 911 anytime you think you may need emergency care. For example, call if: You passed out (lost consciousness). You are confused or cannot think clearly. Your blood sugar is very high or very low. Watch closely for changes in your health, and be sure to contact your doctor if: Your blood sugar stays outside the level your doctor set for you. You have any problems. Credits for Hypoglycemia: Care Instructions Current as of: October 01, 2024 Author: [employer] Staff Clinical Review Board All [employer] education is reviewed by a team that includes physicians, nurses, advanced practitioners, registered dieticians, and other healthcare professionals. CHEST PAIN EDUCATION There are many things that can cause chest pain. Some are not serious and will get better on their own in a few days. But some kinds of chest pain need more testing and treatment. Your doctor may have recommended a follow-up visit in the next few days. If you are not getting better, you may need more tests or treatment. Even though your doctor has released you, you still need to watch for any problems. The doctor carefully checked you, but sometimes problems can develop later. If you have new symptoms or if your symptoms do not get better, get medical care right away. If you have worse or different chest pain or pressure that lasts more than 5 minutes or you passed out (lost consciousness), call 911 or seek other emergency help right away. A medical visit is only one step in your treatment. Even if you feel better, you still need to do what your doctor recommends, such as going to all suggested follow-up appointments and taking medicines exactly as directed. This will help you recover and help prevent future problems. How can you care for yourself at home? Rest until you feel better. Take your medicine exactly as prescribed. Call your doctor if you think you are having a problem with your medicine. Do not drive after taking a prescription pain medicine. When should you call for help? Call 911 if: You passed out (lost consciousness). You have severe difficulty breathing. You have symptoms of a heart attack. These may include: Chest pain or pressure, or a strange feeling in your chest. Sweating. Shortness of breath. Nausea or vomiting. Pain, pressure, or a strange feeling in your back, neck, jaw, or upper belly or in one or both shoulders or arms. Lightheadedness or sudden weakness. A fast or irregular heartbeat. After you call 911, the packerhead machine operator may tell you to chew 1 adult-strength or 2 to 4 low-dose aspirin. Wait for an ambulance. Do not try to drive yourself. Call your doctor now or seek immediate medical care if: You have any trouble breathing. You have new or different chest pain. You are dizzy or lightheaded, or you feel like you may faint. Watch closely for changes in your health, and be sure to contact your doctor if you do not get better as expected. Current as of: October 26, 2023 Author: [employer] Staff? e-Prescriptions No Active Prescriptions or Reported Meds Comments MDM: 64-year-old male who presents to the emergency department via EMS after hypogl ycemic episode after taking insulin at home. He was reporting some chest pain. Patient reports feeling improved after treatment in the emergency department. He is requesting to be discharged. EKG negative for signs of ischemia. High sensitivity troponin negative. CXR shows no acute process. Presentation not suggestive of acute coronary syndrome, pulmonary embolism or aortic dissection. Patient improved at time of discharge. Patient has not been hypoxic, in respiratory distress or dyspneic during the ED observation. Patient able to ambulate without difficulty. Patient felt stable for discharge to follow up with PCP promptly. Patient advised to return to the ED with any new, worsening or concerning symptoms or inability to follow up with PCP. Extensive evaluation was performed in attempt to identify or rule out: (See differential diagnosis section) The following tests were ordered, and results were reviewed by me and discussed with patient: (See diagnostic results section) The following test were independently interpreted by me: EKG, troponin, CMP, CBC I reviewed and agreed with the following test results read by other providers: Chest x-ray I reviewed the following notes from the pt's past medical encounters: May 05, 2022 encounter for suspected upper GI bleed Additional information was gathered from interviewing the following independent historians: N/A Discussion of management or test interpretation with external physician/other qualified health housekeeper caregiver: N/A Addressed [ ]one or more chronic illnesses with severe exacerbation, progression, or side effects of treatment: [ ]an acute or chronic illness that poses a threat to life or bodily function: [ ] Decision regarding hospitalization or escalation of hospital level of care: Risk and benefits of admission for further treatment of patient's condition was considered. Due to patient's current clinical condition, high risk of decline and poor outcome if discharged and need for further inpatient management and monitoring, patient will be admitted to the hospital. Drug therapy requiring intensive monitoring for toxicity: N/A Parenteral controlled substances: N/A Decision regarding elective major surgery with identified patient or procedure risk factors: N/A Decision regarding emergency major surgery: N/A Decision not to resuscitate or to de-escalate care because of poor prognosis: N/A Diagnosis or treatment significantly limited by social determinants of health: N/A Decision regarding hospitalization or escalation of hospital level of care: Risks and benefits of admission for further treatment of patient's condition was considered however due to patient's stable condition patient will be discharged to follow up closely or return to care for worsening of condition or inability to follow up. Critical Care Note Critical Care Time?: No Stability Stability form required: No Heart Score Heart Score: Heart Score Response (Comments) Value History Moderate Suspicious 1 EKG Normal 0 Age 45-64 1 Risk Factors 1 or 2 risk factors 1 Troponin Normal limit 0 Total 3 I personally scribed for NADEEM RECIO MD ([email or web address]) on 03/21/25 at 05:46. Electronically submitted by Kurtis Hay ([email or web address]). NADEEM RECIO MD Mar 21, 2025 05:00
[2025-03-21 05:46] VITALS: PULSE 90
[2025-03-21] MEDS ORDERED: ACCU-CHEK COMFORT CURVE STRIP VI ONE (21:15)
--- NOTE | 2025-03-22 08:30 | ECG ---
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
--- NOTE | 2025-03-22 08:30 | ECG ---
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
== END 2025-03-21 06:35 | disposition home or self-care (01) ==
LOC: ER 00:42 → EDBD 00:42 → ER 06:35
DX: E11.649 Type 2 diabetes mellitus with hypoglycemia without coma (principal); R07.9 Chest pain, unspecified; E11.9 Type 2 diabetes mellitus without complications
CPT/HCPCS: 36415; 71045; 80053; 82947; 82962; 84484; 85025; 93005